=== PATIENT | female | born 1990 | race Caucasian/White ===

== ENCOUNTER 2016-07-12 17:57 | Emergency (ER) | payer SELFPAY ==
[2016-07-12 17:58] VITALS: BMI 27.4
[2016-07-12 18:16] VITALS: RESP 16; O2SAT 100
[2016-07-12] MEDS ORDERED: Sodium Chloride 0.9% 1,000 ML IV STA (19:39)
[2016-07-12] MEDS ORDERED: Dextrose 5%/Lactated Ringer's 1,000 ML IV SCH (19:45)
[2016-07-12 19:52] LABS: BASO # 0.1 K/uL (0.0-0.2); BASO % 0.4 % (0.0-2.0); EOS % 0.1 % (0.0-4.0); HEMATOCRIT 41.5 % (34.0-47.0); LYMPH # 2.5 K/uL (1.0-4.3); LYMPH % 13.4 % (20.0-40.0); MEAN CELL VOLUME 83.6 fl (81.0-99.0); MEAN CORPUSCULAR HEMOGLOBIN 27.5 pg (27.0-31.0); MEAN CORPUSCULAR HGB CONC 32.9 g/dL (33.0-37.0); MEAN PLATELET VOLUME 8.1 fl (7.2-11.7); MONO # 0.8 K/uL (0.0-0.8); MONO % 4.2 % (0.0-10.0); NEUT # 15.5 K/uL (1.8-7.0); NEUT % 81.9 % (50.0-75.0); NRBC % 0.1 % (0.0-0.0); RED CELL DISTRIBUTION WIDTH 13.9 % (11.5-14.5)
[2016-07-12 20:07] LABS: ALB/GLOB RATIO 1.3 (1.0-2.1); ALKALINE PHOSPHATASE 66 U/L (38-126); ALT/SGPT 44 U/L (9-52); AST/SGOT 30 U/L (14-36); BILIRUBIN,TOTAL 0.6 mg/dl (0.2-1.3); BLOOD UREA NITROGEN 12 mg/dl (7-17); CALCIUM 10.1 mg/dL (8.4-10.2); CARBON DIOXIDE 24 mmol/L (22-30); CHLORIDE 107 mmol/L (98-107); GFR AFRICAN-AMERICAN > 60; GLUCOSE,RANDOM 110 mg/dL (65-105); LIPASE 33 U/L (23-300); MAGNESIUM 2.1 MG/DL (1.6-2.3); PHOSPHOROUS 5.1 mg/dl (2.5-4.5); SODIUM 145 mmol/l (132-148); TOTAL PROTEIN 8.4 G/DL (6.3-8.2)
[2016-07-12 20:09] LABS: PARTIAL THROMBOPLASTIN TIME 26.6 SECONDS (23.3-32.5)
--- NOTE | 2016-07-12 20:25 | ED PDOC ---
HPI: Abdomen Time Seen by Provider: 07/12/16 18:59 Chief Complaint (Nursing): Abdominal Pain Chief Complaint (Provider): Abdominal Pain/Vomiting/Diarrhea History Per: Patient History/Exam Limitations: no limitations Onset/Duration Of Symptoms: Days (x1) Current Symptoms Are (Timing): Still Present Associated Symptoms: Vomiting, Diarrhea Additional Complaint(s): 18:59 Tammy De Anda is a 25 year old female that presents to the ED with a chief complaint of cramping abdominal pain, vomiting, and diarrhea that she has been experiencing since yesterday. Patient reports that she has two episodes of nonbilious, nonbloody vomiting and about 10 episodes of yellow, watery diarrhea. She also reports that her cramping has become more severe today. Patient states that she has no appetite, and that she is unable to tolerate anything PO. She has associated chills, but denies any fever or urinary symptoms. She is currently experiencing vaginal bleeding consistent with her menstrual cycle. Of Note: Patient denies any sick contacts, recent travel, or new foods. Past Medical History Reviewed: Historical Data, Nursing Documentation, Vital Signs Vital Signs: Last Vital Signs Temp 98.1 F 07/12/16 23:39 Pulse 75 07/12/16 23:39 Resp 16 07/12/16 23:39 BP 115/74 07/12/16 23:39 Pulse Ox 100 07/12/16 23:39 - Medical History PMH: No Chronic Diseases - Family History Family History: States: Unknown Family Hx - Social History Current smoker - smoking cessation education provided: Yes Alcohol: Social Drugs: Denies - Immunization History Hx Tetanus Toxoid Vaccination: No Hx Influenza Vaccination: No Hx Pneumococcal Vaccination: No - Home Medications Home Medications: Ambulatory Orders Medication Instructions Recorded Ciprofloxacin HCl [Cipro] 500 mg PO BID #20 tab 07/12/16 Dicyclomine [Bentyl] 20 mg PO BID PRN #30 tab 07/12/16 Ondansetron ODT [Zofran ODT] 1 odt PO Q6 PRN #30 odt 07/12/16 Saccharomyces Boulardi [Florastor] 500 mg PO BID #28 cap 07/12/16 metroNIDAZOLE [Flagyl] 500 mg PO TID #30 tab 07/12/16 - Allergies Allergies/Adverse Reactions: Allergies Allergy/AdvReac Type Severity Reaction Status Date / Time No Known Allergies Allergy Verified 07/12/16 18:14 Review of Systems Constitutional: Positive for: Chills. Negative for: Fever, Other (no appetite, unable to tolerate anything PO) Gastrointestinal: Positive for: Vomiting (x2 episodes nonbilious, nonbloody vomiting), Abdominal Pain (cramping), Diarrhea (x10 episodes yellow, watery diarrhea) Genitourinary Female: Positive for: Vaginal Bleeding (consistent with menstrual cycle). Negative for: Dysuria, Frequency, Incontinence, Hematuria Physical Exam - Reviewed Nursing Documentation Reviewed: Yes Vital Signs Reviewed: Yes - Physical Exam Appears: Positive for: Non-toxic, In Acute Distress (in mild painful distress) Head Exam: Positive for: ATRAUMATIC, NORMOCEPHALIC Skin: Positive for: Normal Color, Warm, Dry ENT: Positive for: Pharynx Is (clear), Other (tacky mucous membranes) Cardiovascular/Chest: Positive for: Regular Rate, Rhythm. Negative for: Murmur Respiratory: Positive for: Normal Breath Sounds. Negative for: Wheezing Gastrointestinal/Abdominal: Positive for: Bowel Sounds (hyperactive), Soft, Tenderness (diffuse mild TTP). Negative for: Mass, Distended, Guarding, Rebound Neurologic/Psych: Positive for: Alert, Oriented - Laboratory Results Result Diagrams: 07/12/16 19:44 07/12/16 19:44 - ECG O2 Sat by Pulse Oximetry: 100 (RA) Pulse Ox Interpretation: Normal Medical Decision Making Medical Decision Makin:16 Initial Impression: Abdominal Pain, Vomiting, Diarrhea Initial Plan: * Urine dip * Urine * Dextrose 5%/Lactated Ringers 1000 mL at 100 mL/hr * Pepcid 20 mg iV * Morphine 2 mg IV * Sodium Chloride 1000 mL at 1000 mls/hr * Zofran 8 mg IV * Reevaluation 19:58 Labs showed leukocytosis, ordered CT A/P with IV contrast. EXAM: CT Abdomen and Pelvis With Intravenous Contrast CLINICAL HISTORY: 25 years old, female; Pain; Abdominal pain; Generalized; Additional info: Abd pain. Sent phy doc. With request TECHNIQUE: Axial computed tomography images of the abdomen and pelvis with intravenous contrast. This CT exam was performed using one or more of the following dose reduction techniques : automated exposure control, adjustment of the mA and/or kV according to patient size, and/ or use of iterative reconstruction technique. Coronal and sagittal reformatted images were created and reviewed. CONTRAST: 90 mL of [id number] administered intravenously. EXAM DATE/TIME: Exam ordered 07/12/2016 7:58 PM COMPARISON: CT ABD 09/03/2013 8:06:55 AM FINDINGS: Lower thorax: No acute findings. ABDOMEN: Liver: Unremarkable. No mass. Gallbladder and bile ducts: Unremarkable. No calcified stones. No ductal dilation. Pancreas: Unremarkable. No mass. No ductal dilation. Spleen: Unremarkable. No splenomegaly. Adrenals: Unremarkable. No mass. Kidneys and ureters: Unremarkable. No solid mass. No hydronephrosis. Stomach and bowel: There are borderline distended segments of small bowel in the pelvis with airfluid levels which appear to precede segments of small bowel which demonstrate wall thickening and slight surrounding induration and suggest ileitis or distal enteritis primarily in the right pelvis. Much of the distal colon is collapsed. Minimal wall thickening is not excluded. Appendix: A normal appendix is seen. PELVIS: Bladder: Unremarkable. No mass. Reproductive: Unremarkable as visualized. ABDOMEN and PELVIS: Intraperitoneal space: Unremarkable. No free air. No significant fluid collection. Bones/joints: No acute fracture. No dislocation. Soft tissues: Unremarkable. Vasculature: Unremarkable. No abdominal aortic aneurysm. Lymph nodes: Unremarkable. No enlarged lymph nodes. IMPRESSION: 1. Evidence of distal enteritis or ileitis with borderline distention of the preceding or afferent small bowel segments which may reflect partial obstruction or adynamic segment. Findings are increased since 09/03/2013. 2. The distal colon is collapsed. Slight wall thickening or nonspecific distal colitis is not excluded. Thank you for allowing us to participate in the care of your patient. Dictated and Authenticated by: Mike Burton MD 07/12/2016 9:59 PM Eastern Time ([place] & [place]) Pt reports feeling better. No vomiting in ER. Abdomen soft. Reviewed findings and plan of care. Pt will be dc'd and strongly advised to f/u with clinic for referral to GI and further management. Scribe Attestation: Documented by Ela Sesay, acting as a scribe for Eleonora Mota MD.. Provider Scribe Attestation: All medical record entries made by the Scribe were at my direction and personally dictated by me. I have reviewed the chart and agree that the record accurately reflects my personal performance of the history, physical exam, medical decision making, and the department course for this patient. I have also personally directed, reviewed, and agree with the discharge instructions and disposition. Disposition - Clinical Impression Clinical Impression: Abdominal pain, Enteritis - Disposition Referrals: [facility] [Outside] [facility] [Outside] (CALL TOMORROW TO SETUP APPOINTMENT IN 1-2 DAYS FOR REEVALUATION. YOU WILL NEED A REFERRAL FROM THE CLINIC TO VISIT GI SPECIALIST.) Disposition: Routine/Home Disposition Time: 23:00 Condition: IMPROVED Prescriptions: Ciprofloxacin HCl [Cipro] 500 mg PO BID #20 tab Dicyclomine [Bentyl] 20 mg PO BID PRN #30 tab PRN Reason: abdominal pain metroNIDAZOLE [Flagyl] 500 mg PO TID #30 tab Ondansetron ODT [Zofran ODT] 1 odt PO Q6 PRN #30 odt PRN Reason: Nausea/Vomiting Saccharomyces Boulardi [Florastor] 500 mg PO BID #28 cap Instructions: Abdominal Pain (ED), Nutrition Tips for Relief of Diarrhea (ED), Enteritis (ED) Forms: [facility] ED School/Work Excuse
[2016-07-12] MEDS ORDERED: Iohexol 300 100 ML IJ ONE (21:07)
[2016-07-12] MEDS ORDERED: Sodium Chloride 0.9% 50 ML IV ONE (21:07)
[2016-07-12 23:39] VITALS: BP 115/74; PULSE 75; TEMP 98.1
--- NOTE | 2016-07-13 11:37 | CT ---
PROCEDURE: CT Abdomen and Pelvis with contrast HISTORY: abd pain COMPARISON: Comparison is made to the previous study dated 09/03/2013 TECHNIQUE: Axial and reformatted coronal and sagittal CT images of the abdomen and pelvis were obtained after IV contrast administration. Contrast dose: 90 mL of Omnipaque 300 Radiation dose: Total exam DLP = 538.26 mGy-cm. This CT exam was performed using one or more of the following dose reduction techniques: Automated exposure control, adjustment of the mA and/or kV according to patient size, and/or use of iterative reconstruction technique. FINDINGS: LOWER THORAX: Unremarkable. LIVER: Unremarkable. No gross lesion or ductal dilatation. GALLBLADDER AND BILE DUCTS: Unremarkable. PANCREAS: Unremarkable. No gross lesion or ductal dilatation. SPLEEN: Unremarkable. ADRENALS: Unremarkable. No mass. KIDNEYS AND URETERS: Unremarkable. No hydronephrosis. No solid mass. VASCULATURE: Unremarkable. No aortic aneurysm. BOWEL: Mildly dilated small bowel loops demonstrate mild 2 moderate wall thickening seen at the lower abdomen and upper pelvis suspicious for enteritis. No evidence of bowel obstruction. Wall thickening versus incomplete distention of the distal colon is also noted. APPENDIX: No evidence of appendicitis. PERITONEUM: Unremarkable. No free fluid. No free air. LYMPH NODES: Unremarkable. No enlarged lymph nodes. BLADDER: Unremarkable. REPRODUCTIVE: Heterogeneous mildly enlarged uterus. The uterine cervix is enlarged. BONES: No acute fracture. OTHER FINDINGS: None. IMPRESSION: Mildly dilated small bowel loops demonstrate [id number] wall thickening suspicious for distal enteritis. Wall thickening versus incomplete distention of the distal large bowel. The possibility of mild colitis is not excluded. The differential diagnosis includes infection or inflammatory process. Heterogeneous mildly enlarged uterus. If clinically warranted further assessment by ultrasound may be obtained. Preliminary report was submitted by virtual Radiology.
== END 2016-07-12 23:48 | disposition home or self-care (01) ==
LOC: H.ER 17:57
DX: K52.9 Noninfective gastroenteritis and colitis, unspecified (principal); R10.9 Unspecified abdominal pain; R19.7 Diarrhea, unspecified; R11.2 Nausea with vomiting, unspecified; D72.829 Elevated white blood cell count, unspecified; F17.200 Nicotine dependence, unspecified, uncomplicated
CPT/HCPCS: 74177; 80053; 81025; 83605; 83690; 83735; 84100; 85025; 85610; 85730; 96361; 96374; 96375; 99283; J1885; J2270; J2405; J7040; J7120; Q9967

== ENCOUNTER 2017-04-15 11:29 | Emergency (ER) | payer MEDICAID ==
[2017-04-15 11:29] VITALS: BMI 27.4
[2017-04-15 13:03] VITALS: BP 124/81; PULSE 100; RESP 18; TEMP 97.9; O2SAT 99
--- NOTE | 2017-04-15 13:57 | ED PDOC ---
HPI: Dental Pain/Injury Time Seen by Provider: 04/15/17 13:17 Chief Complaint (Nursing): Dental Pain Chief Complaint (Provider): Dental pain History Per: Patient History/Exam Limitations: no limitations Onset/Duration Of Symptoms: Days (2 ) Additional Complaint(s): Pt. with dental pain lower back mouth for 2 days. No numbness, tingles, weakness, headaches, dizziness. No sore throat, runny nose, nasal congestion. No neck pain or headaches. Tolerates po. No fever. Did not take anything for her pain. Feels swelling in gums in that area. Past Medical History Reviewed: Nursing Documentation, Vital Signs Vital Signs: Last Vital Signs Temp 97.9 F 04/15/17 13:01 Pulse 100 H 04/15/17 13:01 Resp 18 04/15/17 13:01 BP 124/81 04/15/17 13:01 Pulse Ox 99 04/15/17 13:01 - Medical History PMH: No Chronic Diseases - Surgical History Surgical History: No Surg Hx - Family History Family History: States: Unknown Family Hx - Living Arrangements Living Arrangements: With Family - Social History Current smoker - smoking cessation education provided: No Alcohol: None Drugs: Denies - Immunization History Hx Tetanus Toxoid Vaccination: No Hx Influenza Vaccination: No Hx Pneumococcal Vaccination: No - Home Medications Home Medications: Ambulatory Orders Medication Instructions Recorded Ciprofloxacin HCl [Cipro] 500 mg PO BID #20 tab 07/12/16 Dicyclomine [Bentyl] 20 mg PO BID PRN #30 tab 07/12/16 Ondansetron ODT [Zofran ODT] 1 odt PO Q6 PRN #30 odt 07/12/16 Saccharomyces Boulardi [Florastor] 500 mg PO BID #28 cap 07/12/16 metroNIDAZOLE [Flagyl] 500 mg PO TID #30 tab 07/12/16 Ibuprofen [Motrin] 600 mg PO TID 7 Days tab 04/15/17 Penicillin VK [Penicillin VK Tab] 500 mg PO Q6H 7 Days tab 04/15/17 - Allergies Allergies/Adverse Reactions: Allergies Allergy/AdvReac Type Severity Reaction Status Date / Time No Known Allergies Allergy Verified 04/15/17 13:01 Review of Systems Constitutional: Negative for: Fever, Weakness ENT: Positive for: Mouth Pain. Negative for: Nose Pain, Nose Congestion Cardiovascular: Negative for: Chest Pain Respiratory: Negative for: Cough, Shortness of Breath Gastrointestinal: Negative for: Nausea, Vomiting Neurological: Negative for: Weakness, Numbness, Confusion Physical Exam - Reviewed Nursing Documentation Reviewed: Yes Vital Signs Reviewed: Yes - Physical Exam Appears: Positive for: Non-toxic, No Acute Distress Head Exam: Positive for: ATRAUMATIC, NORMAL INSPECTION, NORMOCEPHALIC ENT: Positive for: Other (b/l gum behind molars lower with mild tenderness; no erythema, fluctuance. No swelling noted. Molars nontender. No dc.). Negative for: Nasal Congestion, Pharyngeal Erythema, Tonsillar Exudate Neck: Positive for: Normal, Painless ROM, Supple Cardiovascular/Chest: Positive for: Regular Rate, Rhythm Respiratory: Positive for: Normal Breath Sounds Gastrointestinal/Abdominal: Positive for: Soft. Negative for: Tenderness Back: Positive for: Normal Inspection. Negative for: L CVA Tenderness, R CVA Tenderness Extremity: Positive for: Normal ROM. Negative for: Tenderness, Pedal Edema Neurologic/Psych: Positive for: Alert, water quality analyst II-XII, Oriented - ECG O2 Sat by Pulse Oximetry: 99 Pulse Ox Interpretation: Normal - Progress ED Course And Treament: 1403: Pt. with gum/dental pain. Advised to fu with dentist/pcp. Pt. demanding stronger meds then motrin. Upset and yelling at staff. 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 Disposition - Clinical Impression Clinical Impression: Pain, dental - Patient ED Disposition Is Patient to be Admitted: No Counseled Patient/Family Regarding: Diagnosis, Need For Followup, Rx Given - Disposition Referrals: [facility] [Outside] - 04/18/17 Disposition: Routine/Home Disposition Time: 13:56 Condition: STABLE Additional Instructions: Return if not better in 3 days. See the clinic and dentist for further evaluation in 3 days. Prescriptions: Ibuprofen [Motrin] 600 mg PO TID 7 Days tab Penicillin VK [Penicillin VK Tab] 500 mg PO Q6H 7 Days tab Instructions: Toothache (ED) Forms: [facility] ED School/Work Excuse
== END 2017-04-15 14:27 | disposition home or self-care (01) ==
LOC: H.ER 11:29
DX: K08.89 Other specified disorders of teeth and supporting structures (principal)
CPT/HCPCS: 96372; 99282; J1885

== ENCOUNTER 2017-06-12 14:00 | Emergency (ER) | payer MEDICAID, OTHER ==
[2017-06-12 14:11] VITALS: BMI 21.9
[2017-06-12 14:13] VITALS: BP 113/64; RESP 18; TEMP 99.3; O2SAT 100
[2017-06-12] MEDS ORDERED: Sodium Chloride 0.9% 1,000 ML IV STA (14:21)
--- NOTE | 2017-06-12 14:51 | ED PDOC ---
HPI: General Adult Time Seen by Provider: 06/12/17 14:20 Chief Complaint (Nursing): Abdominal Pain Chief Complaint (Provider): Abdominal Pain History Per: Patient History/Exam Limitations: no limitations Onset/Duration Of Symptoms: Days (x7) Have you had recent travel within the past 21 days to any of the following countries: [place], [place], [place] or [place]?: No Current Symptoms Are (Timing): Still Present Additional Complaint(s): 26 y/o female with a history of opioid addiction presents to the ED for in patient detox addiction. She states she was ingesting 160 mg per day of oxycodon and oxycontin. Patient is not on a current replacement therapy or sub lingual. She complains of abdominal cramping, nausea, body pain, fatigue, and headache. Patient denies any fever, focal abdominal pain, syncope, and has no psychiatric complaints. She has been attending therapy daily and has good out patient follow up. ASSISTANT AUDITOR: None given Past Medical History Reviewed: Historical Data, Nursing Documentation, Vital Signs Vital Signs: Last Vital Signs Temp 99.3 F 06/12/17 14:10 Pulse 84 06/12/17 15:04 Resp 18 06/12/17 14:10 BP 113/64 06/12/17 15:04 Pulse Ox 100 06/12/17 15:24 - Medical History Other PMH: opioid addiction - Surgical History Other surgeries: Termination of - Family History Family History: States: Unknown Family Hx - Social History Current smoker - smoking cessation education provided: Yes Alcohol: None Drugs: Opiates - Immunization History Hx Tetanus Toxoid Vaccination: No Hx Influenza Vaccination: No Hx Pneumococcal Vaccination: No - Home Medications Home Medications: Ambulatory Orders Medication Instructions Recorded Ciprofloxacin HCl [Cipro] 500 mg PO BID #20 tab 07/12/16 Dicyclomine [Bentyl] 20 mg PO BID PRN #30 tab 07/12/16 Ondansetron ODT [Zofran ODT] 1 odt PO Q6 PRN #30 odt 07/12/16 Saccharomyces Boulardi [Florastor] 500 mg PO BID #28 cap 07/12/16 metroNIDAZOLE [Flagyl] 500 mg PO TID #30 tab 07/12/16 Ibuprofen [Motrin] 600 mg PO TID 7 Days tab 04/15/17 Penicillin VK [Penicillin VK Tab] 500 mg PO Q6H 7 Days tab 04/15/17 Ondansetron [Zofran] 4 mg PO Q8H #10 tab 06/12/17 cloNIDine [Catapres] 0.1 mg PO Q8 #10 tab 06/12/17 - Allergies Allergies/Adverse Reactions: Allergies Allergy/AdvReac Type Severity Reaction Status Date / Time No Known Allergies Allergy Verified 04/15/17 13:01 Review of Systems ROS Statement: Except As Marked, All Systems Reviewed And Found Negative Constitutional: Positive for: Other (body pain and fatigue). Negative for: Fever Gastrointestinal: Positive for: Nausea, Abdominal Pain (cramping), Diarrhea. Negative for: Other (focal abdominal pain) Neurological: Positive for: Headache. Negative for: Other (syncope) Psych: Negative for: Other (psychiatric complaints) Physical Exam - Reviewed Nursing Documentation Reviewed: Yes Vital Signs Reviewed: Yes - Physical Exam Appears: Positive for: Non-toxic, No Acute Distress Head Exam: Positive for: ATRAUMATIC, NORMOCEPHALIC Skin: Positive for: Normal Color, Warm, Dry Eye Exam: Positive for: EOMI, Normal appearance, PERRL Neck: Positive for: Normal, Painless ROM Cardiovascular/Chest: Positive for: Regular Rate, Rhythm. Negative for: Murmur Respiratory: Positive for: Normal Breath Sounds. Negative for: Respiratory Distress Gastrointestinal/Abdominal: Positive for: Bowel Sounds (increased), Tenderness ( mild defused tenderness) Back: Positive for: Normal Inspection. Negative for: L CVA Tenderness, R CVA Tenderness Extremity: Positive for: Normal ROM. Negative for: Pedal Edema, Deformity Neurologic/Psych: Positive for: Alert, Oriented (x3). Negative for: Motor/ Sensory Deficits - Laboratory Results Result Diagrams: 06/12/17 14:40 06/12/17 14:40 - ECG O2 Sat by Pulse Oximetry: 100 (RA) Pulse Ox Interpretation: Normal Medical Decision Making Medical Decision Making: Time: 14:10 Initial Impression: In patient detox Initial Plan: * Catapres 0.1mg PO * Bentyl 10mg PO * IV Fluids * Zofran 4mg PO * Urinalysis * Avoid opioid replacement * Supportive care * Endorse to Dr. Seymour at 3:00 PM Scribe Attestation: Documented by Chaparro Boland acting as a scribe for DO. MD Gregorio Fernandez Attestation: All medical record entries made by the Scribe were at my direction and personally dictated by me. I have reviewed the chart and agree that the record accurately reflects my personal performance of the history, physical exam, medical decision making, and the department course for this patient. I have also personally directed, reviewed, and agree with the discharge instructions and disposition. Disposition - Clinical Impression Clinical Impression: Opioid withdrawal - Patient ED Disposition Is Patient to be Admitted: Transfer of Care - Disposition Referrals: Provider JARON, [Primary Care Provider] - Disposition: Transfer of Care Disposition Time: 15:00 Condition: FAIR Prescriptions: cloNIDine [Catapres] 0.1 mg PO Q8 #10 tab Ondansetron [Zofran] 4 mg PO Q8H #10 tab Instructions: Drug Abuse and Drug Addiction (DC) Forms: [facility] (Guamanian) Patient Signed Over To: Coy Seymour
[2017-06-12 14:52] LABS: BASO # 0.1 K/uL (0.0-0.2); BASO % 0.4 % (0.0-2.0); EOS % 0.2 % (0.0-4.0); HEMOGLOBIN 13.4 g/dL (12.0-16.0); LYMPH # 3.4 K/uL (1.0-4.3); LYMPH % 23.6 % (20.0-40.0); MEAN CELL VOLUME 86.5 fl (81.0-99.0); MEAN CORPUSCULAR HEMOGLOBIN 28.7 pg (27.0-31.0); MEAN CORPUSCULAR HGB CONC 33.2 g/dL (33.0-37.0); MEAN PLATELET VOLUME 7.6 fl (7.2-11.7); MONO % 6.8 % (0.0-10.0); NEUT # 10.1 K/uL (1.8-7.0); NRBC % 0.1 % (0.0-0.0); RBC 4.66 Mil/uL (3.80-5.20); RED CELL DISTRIBUTION WIDTH 12.9 % (11.5-14.5); WHITE BLOOD COUNT 14.6 K/uL (4.8-10.8)
[2017-06-12 14:58] LABS: ALB/GLOB RATIO 1.3 (1.0-2.1); ALBUMIN 4.3 g/dL (3.5-5.0); ALT/SGPT 38 U/L (9-52); AST/SGOT 33 U/L (14-36); BLOOD UREA NITROGEN 16 mg/dl (7-17); CALCIUM 9.5 mg/dL (8.4-10.2); GFR AFRICAN-AMERICAN > 60; GFR NON-AFRICAN AMERICAN > 60; LIPASE 142 U/L (23-300)
[2017-06-12 15:05] VITALS: PULSE 84
--- NOTE | 2017-06-12 15:22 | ED PDOC ---
- Laboratory Results Result Diagrams: 06/12/17 14:40 06/12/17 14:40 - ECG O2 Sat by Pulse Oximetry: 100 (RA) - Progress Re-evaluation Time: 15:20 Condition: Improved Disposition - Clinical Impression Clinical Impression: Opioid withdrawal - POA Present On Arrival: None - Disposition Referrals: Provider TBD, [Primary Care Provider] - Disposition: Routine/Home Disposition Time: 15:21 Condition: FAIR Prescriptions: cloNIDine [Catapres] 0.1 mg PO Q8 #10 tab Ondansetron [Zofran] 4 mg PO Q8H #10 tab Instructions: Drug Abuse and Drug Addiction (DC) Forms: [facility] (Nepalese)
[2017-06-12 16:51] LABS: SQUAMOUS EPITHIAL 4 /hpf (0-5); URINE BACTERIA RARE (<OCC); URINE BILIRUBIN NEGATIVE (NEGATIVE); URINE BLOOD NEGATIVE (NEGATIVE); URINE CLARITY SLIGHTY-CLOUDY (Clear); URINE COLOR YELLOW (YELLOW); URINE GLUCOSE (UA) NEG (Normal); URINE LEUKOCYTE ESTERASE NEG Leu/uL (Negative); URINE PROTEIN 100 mg/dL (NEGATIVE); URINE UROBILINOGEN 0.2-1.0 mg/dL (0.2-1.0)
== END 2017-06-12 15:44 | disposition home or self-care (01) ==
LOC: SUPCPDRO 14:00 → H.ER 14:00
DX: F11.23 Opioid dependence with withdrawal (principal); F17.200 Nicotine dependence, unspecified, uncomplicated
CPT/HCPCS: 80053; 81003; 81025; 83690; 85025; 99285; J7040

== ENCOUNTER 2017-08-03 08:44 | Emergency (ER) | payer OTHER ==
[2017-08-03 08:44] VITALS: BMI 21.9
[2017-08-03 08:51] VITALS: RESP 18; TEMP 98.3; O2SAT 100
[2017-08-03 08:58] VITALS: BP 104/63; PULSE 88
--- NOTE | 2017-08-03 09:32 | ED PDOC ---
HPI: Eye Injury/Pain Time Seen by Provider: 08/03/17 08:59 Chief Complaint (Nursing): Eye Problem History Per: Patient Onset/Duration Of Symptoms: Days (2) Current Symptoms Are (Timing): Still Present Severity: Mild Pain Scale Rating Of: 0 Quality: Burning Associated Symptoms: Itching, Discharge From Eye Additional Complaint(s): Left eye irritation and yellow discharge this AM . No pain or change in vision. Past Medical History Vital Signs: Last Vital Signs Temp 98.3 F 08/03/17 08:50 Pulse 88 08/03/17 08:54 Resp 18 08/03/17 08:54 BP 104/63 08/03/17 08:54 Pulse Ox 100 08/03/17 08:50 - Medical History PMH: No Chronic Diseases - Family History Family History: States: Unknown Family Hx - Immunization History Hx Tetanus Toxoid Vaccination: No Hx Influenza Vaccination: No Hx Pneumococcal Vaccination: No - Home Medications Home Medications: Ambulatory Orders Medication Instructions Recorded Ciprofloxacin HCl [Cipro] 500 mg PO BID #20 tab 07/12/16 Dicyclomine [Bentyl] 20 mg PO BID PRN #30 tab 07/12/16 Ondansetron ODT [Zofran ODT] 1 odt PO Q6 PRN #30 odt 07/12/16 Saccharomyces Boulardi [Florastor] 500 mg PO BID #28 cap 07/12/16 metroNIDAZOLE [Flagyl] 500 mg PO TID #30 tab 07/12/16 Ibuprofen [Motrin] 600 mg PO TID 7 Days tab 04/15/17 Penicillin VK [Penicillin VK Tab] 500 mg PO Q6H 7 Days tab 04/15/17 Ibuprofen [Motrin Tab] 800 mg PO Q8 #20 tab 06/12/17 Ondansetron [Zofran] 4 mg PO Q8H #10 tab 06/12/17 cloNIDine [Catapres] 0.1 mg PO Q8 #10 tab 06/12/17 Tobramycin 0.3% [Tobramycin 5 Ml] 1 drop OP TID #1 bottle 08/03/17 - Allergies Allergies/Adverse Reactions: Allergies Allergy/AdvReac Type Severity Reaction Status Date / Time No Known Allergies Allergy Verified 04/15/17 13:01 Review of Systems Constitutional: Negative for: Fever Eyes: Positive for: Redness. Negative for: Vision Change Physical Exam - Physical Exam Appears: Positive for: Non-toxic, No Acute Distress Skin: Positive for: Normal Color, Warm, DRY Eye Exam: Positive for: EOMI, PERRL, Conjunctival injection - ECG O2 Sat by Pulse Oximetry: 100 Disposition - Clinical Impression Clinical Impression: Conjunctivitis - Patient ED Disposition Is Patient to be Admitted: No Counseled Patient/Family Regarding: Diagnosis, Need For Followup, Rx Given - Disposition Referrals: [facility] [Outside] Disposition: Routine/Home Disposition Time: 09:31 Condition: FAIR Prescriptions: Tobramycin 0.3% [Tobramycin 5 Ml] 1 drop OP TID #1 bottle Instructions: Conjunctivitis ([place])
== END 2017-08-03 09:38 | disposition home or self-care (01) ==
LOC: H.ER 08:44
DX: H10.9 Unspecified conjunctivitis (principal)

== ENCOUNTER 2018-01-17 11:23 | Emergency (ER) | payer OTHER ==
[2018-01-17 11:24] VITALS: BMI 21.9
[2018-01-17 11:28] VITALS: RESP 17; TEMP 98.5; O2SAT 99
[2018-01-17] MEDS ORDERED: Sodium Chloride 0.9% 1,000 ML IV STA (11:58)
--- NOTE | 2018-01-17 12:21 | ED PDOC ---
HPI: Abdomen Time Seen by Provider: 01/17/18 11:41 Chief Complaint (Nursing): Abdominal Pain Chief Complaint (Provider): Abdominal Pain History Per: Patient History/Exam Limitations: no limitations Additional Complaint(s): 27 year old female arrives to ED from [facility] for evaluation of a possible demise after cardiac activity was not seen on follow-up U/S at facility [employer]. Patient states she is approximately 12 weeks by LMP, A2. She reports mild abdominal cramping yesterday which has since resolved, but otherwise: (-) fever/chills, (-) nausea, (-) vomiting, (-) diarrhea, or (-) vaginal bleeding. Prior U/S at 8 weeks gestation demonstrated HR as per patient. LMP: 10/21/17. No medications taken [employer]ATE WORK[employer]. 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 Past Medical History Reviewed: Historical Data, Nursing Documentation, Vital Signs Vital Signs: Last Vital Signs Temp 98.5 F 01/17/18 11:27 Pulse 90 01/17/18 11:27 Resp 17 01/17/18 11:27 BP 112/73 01/17/18 11:27 Pulse Ox 99 01/17/18 11:27 - Medical History PMH: No Chronic Diseases - Surgical History Other surgeries: D&C x2 - Family History Family History: States: Unknown Family Hx - Home Medications Home Medications: Ambulatory Orders Medication Instructions Recorded Ciprofloxacin HCl [Cipro] 500 mg PO BID #20 tab 07/12/16 Dicyclomine [Bentyl] 20 mg PO BID PRN #30 tab 07/12/16 Ondansetron ODT [Zofran ODT] 1 odt PO Q6 PRN #30 odt 07/12/16 Saccharomyces Boulardi [Florastor] 500 mg PO BID #28 cap 07/12/16 metroNIDAZOLE [Flagyl] 500 mg PO TID #30 tab 07/12/16 Ibuprofen [Motrin] 600 mg PO TID 7 Days tab 04/15/17 RX: Penicillin VK [Penicillin VK 500 mg PO Q6H 7 Days tab 04/15/17 Tab] Ibuprofen [Motrin Tab] 800 mg PO Q8 #20 tab 06/12/17 Ondansetron [Zofran] 4 mg PO Q8H #10 tab 06/12/17 RX: cloNIDine [Catapres] 0.1 mg PO Q8 #10 tab 06/12/17 Tobramycin 0.3% [Tobramycin 5 Ml] 1 drop OP TID #1 bottle 08/03/17 - Allergies Allergies/Adverse Reactions: Allergies Allergy/AdvReac Type Severity Reaction Status Date / Time No Known Allergies Allergy Verified 12/01/17 19:58 Review of Systems ROS Statement: Except As Marked, All Systems Reviewed And Found Negative Gastrointestinal: Positive for: Abdominal Pain (mild cramping- resolved spontaneously last night). Negative for: Nausea, Vomiting, Diarrhea Genitourinary Female: Negative for: Vaginal Bleeding Physical Exam - Reviewed Nursing Documentation Reviewed: Yes Vital Signs Reviewed: Yes - Physical Exam Comments: GENERAL APPEARANCE: Patient is awake, alert, oriented x 3, in no distress. Resting comfortably, interacting with family at bedside. SKIN: Warm, dry; (-) cyanosis. EYES: (-) conjunctival pallor, (-) scleral icterus. ENMT: Mucous membranes are moist. NECK: Supple, FROM (-) tenderness, (-) stiffness, (-) lymphadenopathy. CHEST AND RESPIRATORY: (-) rales, (-) rhonchi, (-) wheezes; breath sounds equal bilaterally. Respirations even and nonlabored, speaking in full sentences. HEART AND CARDIOVASCULAR: (-) irregularity ABDOMEN AND GI: Soft (-) distention. Bowel sounds active x4; (-) tenderness. (- ) guarding, (-) rebound, (-) palpable masses, (-) CVA tenderness. EXTREMITIES: (-) deformity, (-) edema, (+) distal pulses. NEURO AND PSYCH: Mental status as above; (-) focal findings. Gait: steady. Speech: clear. (-) facial asymmetry (-) aphasia - Laboratory Results Result Diagrams: 01/17/18 12:30 01/17/18 12:30 Urine POC: Positive Urine dip results: Negative for: Leukocyte Esterase, Blood, Nitrate, Ketones, Glucose, Bilirubin, Protein - ECG O2 Sat by Pulse Oximetry: 99 (RA) Pulse Ox Interpretation: Normal Medical Decision Making Medical Decision Making: Initial Impression: Possible demise Initial Plan: * Labs * IV fluids * Tylenol 975mg PO * US OB transvag 1220 Udip reviewed and unremarkable Urine preg: (+) 1320 CBC and CMP grossly unremarkable. Beta HCG 38,335 Pending U/S evaluation. 1345 U/S reviewed, radiology report follows Date of service: 01/17/2018 PROCEDURE: OB Pelvic Ultrasound HISTORY: no HR on U/S earlier today at imaging center COMPARISON: 12/01/2017. FINDINGS: UTERUS: Single intrauterine gestation. CRL equivalent measures 1.62 cm equivalent to 8 weeks and 0 day of gestational age. Gestational sac diameter measures 5.35 cm equivalent to 11 weeks and 2 days of gestational age age (Ultrasound estimated): 9 weeks and 5 days cardiac activity is not documented. Meme-gestational hemorrhage: None. Measures 11.5 x 9.2 x 7.1 cm. Normal in size and appearance. No fibroid or other mass lesion seen. CERVIX: Long and closed. In nabothian cyst is identified. RIGHT OVARY: Measures 3.5 x 3.5 x 2.0 cm. No mass. Normal flow. There is a 1.8 x 1.3 x 1.4 cm complicated cyst. LEFT OVARY: Measures 2.2 x 3.1 x 2.0 cm. No mass. Normal flow. FREE FLUID: None. OTHER FINDINGS: None. IMPRESSION: Single intrauterine gestation with mean gestational age of 9 weeks and 5 days. cardiac activity is not documented concerning for demise. Important findings were discussed with MARNI Clounga in the ER on 01/17/2018 at 1:45 p.m. Consult placed to OBGYN prescriptionist. [address] Duke, OBGYN prescriptionist, who states patient can follow up with her OBGYN for further treatment. Recommends no further action required in ED at this time as patient in stable condition. 1435 On re-evaluation, patient offers no complaints. On exam, patient remains AAOx3, in no acute distress. Lungs clear to auscultation, cardiac RRR, abdomen soft, nontender, repeat neuro exam shows no focal findings. Vitals stable. Lab/diagnostic results d/w the patient in great detail. Diagnosis of demise d/w the patient. Based on history, exam and diagnostic results, plan will be for outpatient follow up with OBGYN within 48 hours. Patient instructed to follow up with PMD/clinic/ referred provider in 1-2 days without fail. Return to the ED at any time for any new or worsening symptoms. Patient states that she fully agrees with and understands the discharge instructions. States that she agrees with the plan and disposition. Verbalized and repeated discharge instructions and plan. I have given the patient opportunity to ask any additional questions. Scribe Attestation: Documented by Rosa Henry, acting as a scribe for Desiree Colunga PA-C. Provider Scribe Attestation: All medical record entries made by the Scribe were at my direction and personally dictated by me. I have reviewed the chart and agree that the record accurately reflects my personal performance of the history, physical exam, medical decision making, and the department course for this patient. I have also personally directed, reviewed, and agree with the discharge instructions and disposition. Disposition - Clinical Impression Clinical Impression: demise before 20 weeks with retention of fetus - Patient ED Disposition Is Patient to be Admitted: No Counseled Patient/Family Regarding: Studies Performed, Diagnosis, Need For Followup - Disposition Referrals: Carlos Alberto MENENDEZ,Ken Springer [Non-Staff] - Disposition: Routine/Home Disposition Time: 14:35 Condition: STABLE Additional Instructions: FOLLOW UP WITH OBGYN WITHIN 48 HOURS FOR FURTHER EVALUATION/TREATMENT. The emergency medical care you received today was directed at your acute symptoms. If you were prescribed any medication, please fill it and take as directed. It may take several days for your symptoms to resolve. Return to the ED if your symptoms worsen, do not improve, or if you have any other problems. Please contact your doctor in 2 days for re-evaluation and follow up/or call one of the physicians/clinics you have been referred to that are listed on the Patient Visit Information form that is included in your discharge packet. Bring any paperwork you were given at discharge with you along with any medications you are taking to your follow up visit. Our treatment cannot replace ongoing medical care by a primary care provider (PCP) outside of the emergency dep artment. Instructions: Miscarriage, Dealing With Miscarriage Forms: [employer] (Qatari) Print Language: NIGERIEN - POA Present On Arrival: None Results - Lab Results Lab Results: 01/17/18 01/17/18 01/17/18 12:30 12:30 12:30 WBC 8.4 RBC 4.49 Hgb 12.6 Hct 38.3 MCV 85.3 MCH 28.0 MCHC 32.9 L RDW 13.1 Plt Count 292 MPV 7.5 Neut % (Auto) 63.4 Lymph % (Auto) 28.1 [place] % (Auto) 7.2 Eos % (Auto) 1.1 Baso % (Auto) 0.2 Neut # (Auto) 5.3 Lymph # (Auto) 2.4 [place] # (Auto) 0.6 Eos # (Auto) 0.1 Baso # (Auto) 0.0 Sodium 140 Potassium 4.2 Chloride 105 Carbon Dioxide 26 Anion Gap 13 BUN 11 Creatinine 0.5 L Est GFR ( Amer) > 60 Est GFR (Non-Af Amer) > 60 Random Glucose 84 Calcium 9.4 Total Bilirubin 0.3 AST 33 ALT 32 Alkaline Phosphatase 44 Total Protein 8.0 Albumin 4.5 Globulin 3.5 Albumin/Globulin Ratio 1.3 Beta HCG, Quant 75884.00
[2018-01-17 12:49] LABS: BASO % 0.2 % (0.0-2.0); EOS # 0.1 K/uL (0.0-0.7); EOS % 1.1 % (0.0-4.0); HEMOGLOBIN 12.6 g/dL (12.0-16.0); LYMPH # 2.4 K/uL (1.0-4.3); LYMPH % 28.1 % (20.0-40.0); MEAN CELL VOLUME 85.3 fl (81.0-99.0); MEAN CORPUSCULAR HGB CONC 32.9 g/dL (33.0-37.0); MEAN PLATELET VOLUME 7.5 fl (7.2-11.7); MONO # 0.6 K/uL (0.0-0.8); MONO % 7.2 % (0.0-10.0); NEUT # 5.3 K/uL (1.8-7.0); NEUT % 63.4 % (50.0-75.0); NRBC % 0.3 % (0.0-0.0); RBC 4.49 Mil/uL (3.80-5.20); RED CELL DISTRIBUTION WIDTH 13.1 % (11.5-14.5); WHITE BLOOD COUNT 8.4 K/uL (4.8-10.8)
[2018-01-17 12:58] LABS: ALB/GLOB RATIO 1.3 (1.0-2.1); ALBUMIN 4.5 g/dL (3.5-5.0); ALT/SGPT 32 U/L (9-52); AST/SGOT 33 U/L (14-36); BLOOD UREA NITROGEN 11 mg/dl (7-17); CALCIUM 9.4 mg/dL (8.4-10.2); GFR NON-AFRICAN AMERICAN > 60
--- NOTE | 2018-01-17 13:53 | US ---
Date of service: 01/17/2018 PROCEDURE: OB Pelvic Ultrasound HISTORY: no HR on U/S earlier today at imaging center COMPARISON: 12/01/2017. FINDINGS: UTERUS: Single intrauterine gestation. CRL equivalent measures 1.62 cm equivalent to 8 weeks and 0 day of gestational age. Gestational sac diameter measures 5.35 cm equivalent to 11 weeks and 2 days of gestational age age (Ultrasound estimated): 9 weeks and 5 days cardiac activity is not documented. Meme-gestational hemorrhage: None. Measures 11.5 x 9.2 x 7.1 cm. Normal in size and appearance. No fibroid or other mass lesion seen. CERVIX: Long and closed. In nabothian cyst is identified. RIGHT OVARY: Measures 3.5 x 3.5 x 2.0 cm. No mass. Normal flow. There is a 1.8 x 1.3 x 1.4 cm complicated cyst. LEFT OVARY: Measures 2.2 x 3.1 x 2.0 cm. No mass. Normal flow. FREE FLUID: None. OTHER FINDINGS: None. IMPRESSION: Single intrauterine gestation with mean gestational age of 9 weeks and 5 days. cardiac activity is not documented concerning for demise. Important findings were discussed with MARNI Colunga in the ER on 01/17/2018 at 1:45 p.m.
[2018-01-17 15:30] VITALS: BP 110/73; PULSE 72
== END 2018-01-17 14:50 | disposition home or self-care (01) ==
LOC: H.ER 11:23
DX: O36.4XX1 Maternal care for intrauterine death, fetus 1 (principal); Z3A.09 9 weeks gestation of pregnancy
CPT/HCPCS: 76817; 80053; 81025; 84702; 85025; 96360; 99284; J7030

== ENCOUNTER 2018-05-22 10:03 | Emergency (ER) | payer OTHER ==
[2018-05-22 10:11] VITALS: BMI 29.2
[2018-05-22 10:13] VITALS: RESP 18; O2SAT 99
--- NOTE | 2018-05-22 11:34 | ED PDOC ---
HPI: General Adult Time Seen by Provider: 05/22/18 11:32 Chief Complaint (Nursing): Back Pain Chief Complaint (Provider): lower back pain History Per: Patient (27 y/o female here for lower back pain intermittent x 5 days. Denies any dysuria/hematuria/fevers/chills. Has h/o kidney stones. H/o miscarriage Jan 2018. LMP 05/02.) Past Medical History Reviewed: Historical Data, Nursing Documentation, Vital Signs Vital Signs: Last Vital Signs Temp 98.7 F 05/22/18 10:11 Pulse 94 H 05/22/18 10:11 Resp 18 05/22/18 10:11 BP 110/70 05/22/18 10:11 Pulse Ox 99 05/22/18 10:11 - Family History Family History: States: Unknown Family Hx - Immunization History Hx Tetanus Toxoid Vaccination: No Hx Influenza Vaccination: Yes (01/2018) Hx Pneumococcal Vaccination: No - Home Medications Home Medications: Ambulatory Orders Medication Instructions Recorded Ciprofloxacin HCl [Cipro] 500 mg PO BID #20 tab 07/12/16 Dicyclomine [Bentyl] 20 mg PO BID PRN #30 tab 07/12/16 Ondansetron ODT [Zofran ODT] 1 odt PO Q6 PRN #30 odt 07/12/16 Saccharomyces Boulardi [Florastor] 500 mg PO BID #28 cap 07/12/16 metroNIDAZOLE [Flagyl] 500 mg PO TID #30 tab 07/12/16 Ibuprofen [Motrin] 600 mg PO TID 7 Days tab 04/15/17 Penicillin VK [Penicillin VK Tab] 500 mg PO Q6H 7 Days tab 04/15/17 Ibuprofen [Motrin Tab] 800 mg PO Q8 #20 tab 06/12/17 Ondansetron [Zofran] 4 mg PO Q8H #10 tab 06/12/17 cloNIDine [Catapres] 0.1 mg PO Q8 #10 tab 06/12/17 Tobramycin 0.3% [Tobramycin 5 Ml] 1 drop OP TID #1 bottle 08/03/17 Multivit/Folic Acid/I 1 tab PO DAILY #15 tab 05/22/18 [ Plus] - Allergies Allergies/Adverse Reactions: Allergies Allergy/AdvReac Type Severity Reaction Status Date / Time No Known Allergies Allergy Verified 05/22/18 10:31 Review of Systems ROS Statement: Except As Marked, All Systems Reviewed And Found Negative Musculoskeletal: Positive for: Back Pain Physical Exam - Reviewed Nursing Documentation Reviewed: Yes Vital Signs Reviewed: Yes - Physical Exam Appears: Positive for: Well, Non-toxic, No Acute Distress Head Exam: Positive for: ATRAUMATIC, NORMAL INSPECTION, NORMOCEPHALIC Skin: Positive for: Normal Color, Warm, DRY Eye Exam: Positive for: EOMI, Normal appearance, PERRL ENT: Positive for: Normal ENT Inspection Neck: Positive for: Normal, Painless ROM Cardiovascular/Chest: Positive for: Regular Rate, Rhythm Respiratory: Positive for: CNT, Normal Breath Sounds Gastrointestinal/Abdominal: Positive for: Normal Exam, Soft Back: Positive for: Vertebral Tenderness (mild paralumbar tenderness on exam). Negative for: Normal Inspection Extremity: Positive for: Normal ROM Neurological/Psych: Positive for: Awake, Alert, Normal Tone - Laboratory Results Result Diagrams: 05/22/18 11:40 05/22/18 11:40 Urine POC: Positive - ECG O2 Sat by Pulse Oximetry: 99 Disposition - Clinical Impression Clinical Impression: Threatened miscarriage in early , Ovarian cyst - Patient ED Disposition Is Patient to be Admitted: No - Disposition [facility] Disposition: Routine/Home Condition: FAIR Additional Instructions: RETURN IN 2 DAYS FOR REPEAT BETA HCG Prescriptions: Multivit/Folic Acid/I [ Plus] 1 tab PO DAILY #15 tab Instructions: Threatened Miscarriage (DC)
[2018-05-22 11:38] LABS: SQUAMOUS EPITHIAL 4 /hpf (0-5); URINE BILIRUBIN NEGATIVE (NEGATIVE); URINE BLOOD NEGATIVE (NEGATIVE); URINE CLARITY SLIGHTY-CLOUDY (Clear); URINE COLOR YELLOW (YELLOW); URINE GLUCOSE (UA) NEG (NEGATIVE); URINE LEUKOCYTE ESTERASE NEG Leu/uL (Negative); URINE PROTEIN NEGATIVE (NEGATIVE); URINE UROBILINOGEN 0.2-1.0 mg/dL (0.2-1.0)
[2018-05-22 11:46] LABS: BASO % 0.4 % (0.0-2.0); EOS # 0.1 K/uL (0.0-0.7); EOS % 1.6 % (0.0-4.0); HEMOGLOBIN 12.7 g/dL (12.0-16.0); LYMPH # 2.4 K/uL (1.0-4.3); LYMPH % 27.8 % (20.0-40.0); MEAN CORPUSCULAR HEMOGLOBIN 26.8 pg (27.0-31.0); MEAN CORPUSCULAR HGB CONC 32.7 g/dL (33.0-37.0); MEAN PLATELET VOLUME 7.8 fl (7.2-11.7); MONO # 0.9 K/uL (0.0-0.8); MONO % 10.1 % (0.0-10.0); NEUT # 5.2 K/uL (1.8-7.0); NEUT % 60.1 % (50.0-75.0); NRBC % 0.1 % (0.0-0.0); RBC 4.73 Mil/uL (3.80-5.20); RED CELL DISTRIBUTION WIDTH 14.6 % (11.5-14.5); WHITE BLOOD COUNT 8.6 K/uL (4.8-10.8)
[2018-05-22 12:13] LABS: BLOOD UREA NITROGEN 11 mg/dl (7-17); CALCIUM 9.9 mg/dL (8.4-10.2); GFR NON-AFRICAN AMERICAN > 60
--- NOTE | 2018-05-22 14:03 | US ---
Date of service: 05/22/2018 HISTORY: threatened miscarrige Beta HCG results 4972.50 units. COMPARISON: None available. TECHNIQUE: Standard protocol for this study/examination. FINDINGS: UTERUS: Measures 4.5 x 6.8 x 8.5 cm. Normal in size and appearance. No fibroid or other mass lesion seen. ENDOMETRIUM: Saclike structure, possible yolk sac. No visible pole. Gestational sac measurement 0.8 cm. Below the threshold for calculation of a reliable gestational age CERVIX: No cervical abnormality identified. Closed cervix measures 4.05 cm. RIGHT OVARY: Measures 1.5 x 2.6 x 2.9 cm. No solid mass. Normal flow. LEFT OVARY: Measures 3.2 x 1.7 x 3.6 cm. Solid mass with small cystic components. Increased vascularity identified. The possibility of concurrent ectopic gestation should be considered. Normal flow. Complex cyst 1.3 x 1.2 x 1.3 cm containing debris likely hemorrhagic cysts. FREE FLUID: Trace free fluid identified in the pelvis/cul de sac. OTHER FINDINGS: None. IMPRESSION: Early intrauterine gestation manifest as well-formed gestational sac and yolk sac. Findings in the left adnexa include simple cyst and complex cyst/mass. Although extremely unlikely, the possibility of concurrent ectopic gestation should be considered. Communication of results: I discussed findings directly with the physician speech pathologist assistant Norman Hui at the time of this interpretation 13:57.
[2018-05-22 14:31] VITALS: BP 116/66; PULSE 86; TEMP 98.8
== END 2018-05-22 13:55 | disposition home or self-care (01) ==
LOC: H.ER 10:03
DX: O20.0 Threatened abortion (principal); Z87.442 Personal history of urinary calculi; Z3A.01 Less than 8 weeks gestation of pregnancy; N83.209 Unspecified ovarian cyst, unspecified side

== ENCOUNTER 2018-05-24 09:25 | Emergency (ER) | payer OTHER ==
[2018-05-24 09:25] VITALS: BMI 29.2
[2018-05-24 09:29] VITALS: O2SAT 100
--- NOTE | 2018-05-24 09:36 | ED PDOC ---
HPI: Female Pain Time Seen by Provider: 05/24/18 09:31 Chief Complaint (Provider): Pelvic pain History Per: Patient History/Exam Limitations: no limitations Onset/Duration Of Symptoms: Days (05/22/18) Current Symptoms Are (Timing): Still Present Additional History Per: Patient Additional Complaint(s): Pt. has had pelvic cramping pain. No vaginal bleeding, weakness, dysuria, back pain, chest pain, dyspnea. No fever. Is preg and concerned as she still has the pain. Was here on 05/22/18 and had US and blood work done. Past Medical History Reviewed: Nursing Documentation, Vital Signs Vital Signs: Last Vital Signs Temp 97.8 F 05/24/18 09:27 Pulse 75 05/24/18 09:27 Resp 17 05/24/18 09:27 BP 99/57 L 05/24/18 09:27 Pulse Ox 100 05/24/18 09:27 - Medical History PMH: No Chronic Diseases - Surgical History Surgical History: No Surg Hx - Family History Family History: States: Unknown Family Hx - Immunization History Hx Tetanus Toxoid Vaccination: No Hx Influenza Vaccination: Yes (01/2018) Hx Pneumococcal Vaccination: No - Home Medications Home Medications: Ambulatory Orders Medication Instructions Recorded Ciprofloxacin HCl [Cipro] 500 mg PO BID #20 tab 07/12/16 Dicyclomine [Bentyl] 20 mg PO BID PRN #30 tab 07/12/16 Ondansetron ODT [Zofran ODT] 1 odt PO Q6 PRN #30 odt 07/12/16 Saccharomyces Boulardi [Florastor] 500 mg PO BID #28 cap 07/12/16 metroNIDAZOLE [Flagyl] 500 mg PO TID #30 tab 07/12/16 Ibuprofen [Motrin] 600 mg PO TID 7 Days tab 04/15/17 Penicillin VK [Penicillin VK Tab] 500 mg PO Q6H 7 Days tab 04/15/17 Ibuprofen [Motrin Tab] 800 mg PO Q8 #20 tab 06/12/17 Ondansetron [Zofran] 4 mg PO Q8H #10 tab 06/12/17 cloNIDine [Catapres] 0.1 mg PO Q8 #10 tab 06/12/17 Tobramycin 0.3% [Tobramycin 5 Ml] 1 drop OP TID #1 bottle 08/03/17 Multivit/Folic Acid/I 1 tab PO DAILY #15 tab 05/22/18 [ Plus] - Allergies Allergies/Adverse Reactions: Allergies Allergy/AdvReac Type Severity Reaction Status Date / Time No Known Allergies Allergy Verified 05/22/18 10:31 Review of Systems ROS Statement: Except As Marked, All Systems Reviewed And Found Negative Genitourinary Female: Positive for: Pelvic Pain Physical Exam - Reviewed Nursing Documentation Reviewed: Yes Vital Signs Reviewed: Yes - Physical Exam Appears: Positive for: Non-toxic, No Acute Distress Head Exam: Positive for: ATRAUMATIC, NORMAL INSPECTION, NORMOCEPHALIC Skin: Positive for: Normal Color, Warm, DRY Eye Exam: Positive for: EOMI, Normal appearance, PERRL ENT: Positive for: Normal ENT Inspection Neck: Positive for: Normal, Painless ROM Cardiovascular/Chest: Positive for: Regular Rate, Rhythm Respiratory: Positive for: CNT, Normal Breath Sounds Gastrointestinal/Abdominal: Positive for: Soft, Tenderness (across pelvic) Back: Positive for: Normal Inspection Extremity: Positive for: Normal ROM Neurological/Psych: Positive for: Awake, Alert, Normal Tone - Laboratory Results Result Diagrams: 05/24/18 08:55 05/24/18 08:55 Lab Results: bhcg increasing - ECG O2 Sat by Pulse Oximetry: 100 Pulse Ox Interpretation: Normal - CT Scan/US US Other Rad Studies (CT/US): Read By Radiologist Other Rad Interpretation: SLIUP - Progress ED Course And Treament: 945: Per records, pt. has US and showed IUP and cyst on the left with r/o for ectopic. Will repeat US and blood work. 1133: Stable. AAOx3. Pain free. Tolerated PO. Fu with pcp and obgyn. Disposition - Clinical Impression Clinical Impression: Threatened , Ovarian cyst - Patient ED Disposition Is Patient to be Admitted: No Counseled Patient/Family Regarding: Studies Performed, Diagnosis, Need For Followup - Disposition [facility]] Disposition: Routine/Home Disposition Time: 11:34 Condition: STABLE Additional Instructions: Return if not better in 3 days. Instructions: Ovarian Cysts, Threatened Miscarriage
[2018-05-24] MEDS ORDERED: Sodium Chloride 0.9% 1,000 ML IV STA (09:39)
[2018-05-24 10:28] LABS: ALB/GLOB RATIO 1.4 (1.0-2.1); ALBUMIN 4.6 g/dL (3.5-5.0); ALT/SGPT 30 U/L (9-52); AST/SGOT 26 U/L (14-36); BLOOD UREA NITROGEN 12 mg/dl (7-17); CALCIUM 10.1 mg/dL (8.4-10.2); GFR NON-AFRICAN AMERICAN > 60
[2018-05-24 10:31] LABS: BASO % 0.2 % (0.0-2.0); EOS # 0.2 K/uL (0.0-0.7); EOS % 2.7 % (0.0-4.0); LYMPH # 2.5 K/uL (1.0-4.3); LYMPH % 28.5 % (20.0-40.0); MEAN CELL VOLUME 81.7 fl (81.0-99.0); MEAN PLATELET VOLUME 8.2 fl (7.2-11.7); MONO # 0.8 K/uL (0.0-0.8); NEUT # 5.3 K/uL (1.8-7.0); NEUT % 59.6 % (50.0-75.0); NRBC % 0.1 % (0.0-0.0); RBC 4.83 Mil/uL (3.80-5.20); RED CELL DISTRIBUTION WIDTH 14.5 % (11.5-14.5); WHITE BLOOD COUNT 8.9 K/uL (4.8-10.8)
--- NOTE | 2018-05-24 11:28 | US ---
Date of service: 05/24/2018 PROCEDURE: OB Pelvic Ultrasound HISTORY: preg and pain; cyst r/o ectopic COMPARISON: None available. FINDINGS: UTERUS: Single Live intrauterine gestation. CRL measures 0.25 cm equivalent to 5 weeks and 6 days of gestational age. Gestational sac diameter measures 1.00 cm equivalent to 5 weeks and 0 days of gestational age. age (Ultrasound estimated): 5 weeks and 3 days Date of delivery (Ultrasound estimated) : 01/21/2019 Heart rate: 126 bpm. Meme-gestational hemorrhage: None. Uterus measures cm. No mass CERVIX: Long and closed. No cervical abnormality seen. RIGHT OVARY: Measures 2.6 x 2.5 x 1.8 cm. No mass. Normal flow. LEFT OVARY: Measures 3.7 x 3.7 x 2.4 cm. No mass. Normal flow. There are 2 complicated/hemorrhagic cysts measuring about 2.0 cm and a 1.3 x 1.2 x 1.2 cm simple cyst. FREE FLUID: None. OTHER FINDINGS: None. IMPRESSION: Single live intrauterine gestation with mean gestational age of 5 weeks and 3 days. The estimated date of delivery by ultrasound is 01/21/2019. The ultrasound dates correspond with the clinical dates.
[2018-05-24 13:23] VITALS: BP 107/63; PULSE 74; RESP 18; TEMP 98.3
== END 2018-05-24 13:34 | disposition home or self-care (01) ==
LOC: H.ER 09:25
DX: O20.0 Threatened abortion (principal); N83.209 Unspecified ovarian cyst, unspecified side; O34.81 Maternal care for other abnormalities of pelvic organs, first trimester; Z3A.01 Less than 8 weeks gestation of pregnancy
CPT/HCPCS: 76817; 80053; 84702; 85025; 86850; 86900; 99285; J2792; J7030

== ENCOUNTER 2018-06-10 19:42 | Emergency (ER) | payer OTHER ==
[2018-06-10 19:43] VITALS: BMI 29.2
[2018-06-10 20:03] VITALS: BP 106/68; PULSE 86; RESP 16; TEMP 98.8; O2SAT 99
--- NOTE | 2018-06-10 20:44 | ED PDOC ---
HPI: Female Pain Time Seen by Provider: 06/10/18 20:01 Chief Complaint (Nursing): Female Genitourinary History Per: Patient History/Exam Limitations: no limitations Onset/Duration Of Symptoms: Hrs Current Symptoms Are (Timing): Gone Now Additional Complaint(s): at approximately 8 weeks presenting with vaginal spotting approximatly 1 hour prior to arrival. It has since stopped. She states she has mild 2/10 cramping lower abdominal pain. Patient was concerned because she had a spontaneous in January 2018 and was told by her OB that if any concerning symptoms arise during this she should come to the E.R. Denies fevers, back pain, nausea, vomiting. Was in E.D. on 05/24 for similar and had Rhogam at that time. Past Medical History Reviewed: Historical Data, Nursing Documentation, Vital Signs Vital Signs: Last Vital Signs Temp 98.8 F 06/10/18 20:00 Pulse 86 06/10/18 20:00 Resp 16 06/10/18 20:00 BP 106/68 06/10/18 20:00 Pulse Ox 99 06/10/18 20:00 - Medical History PMH: No Chronic Diseases Denies: Chronic Kidney Disease - Family History Family History: States: Unknown Family Hx - Immunization History Hx Tetanus Toxoid Vaccination: No Hx Influenza Vaccination: Yes (01/2018) Hx Pneumococcal Vaccination: No - Home Medications Home Medications: Ambulatory Orders Medication Instructions Recorded Ciprofloxacin HCl [Cipro] 500 mg PO BID #20 tab 07/12/16 Dicyclomine [Bentyl] 20 mg PO BID PRN #30 tab 07/12/16 Ondansetron ODT [Zofran ODT] 1 odt PO Q6 PRN #30 odt 07/12/16 Saccharomyces Boulardi [Florastor] 500 mg PO BID #28 cap 07/12/16 metroNIDAZOLE [Flagyl] 500 mg PO TID #30 tab 07/12/16 Ibuprofen [Motrin] 600 mg PO TID 7 Days tab 04/15/17 Penicillin VK [Penicillin VK Tab] 500 mg PO Q6H 7 Days tab 04/15/17 Ibuprofen [Motrin Tab] 800 mg PO Q8 #20 tab 06/12/17 Ondansetron [Zofran] 4 mg PO Q8H #10 tab 06/12/17 cloNIDine [Catapres] 0.1 mg PO Q8 #10 tab 06/12/17 Tobramycin 0.3% [Tobramycin 5 Ml] 1 drop OP TID #1 bottle 08/03/17 Multivit/Folic Acid/I 1 tab PO DAILY #15 tab 05/22/18 [ Plus] - Allergies Allergies/Adverse Reactions: Allergies Allergy/AdvReac Type Severity Reaction Status Date / Time No Known Allergies Allergy Verified 05/22/18 10:31 Review of Systems ROS Statement: Except As Marked, All Systems Reviewed And Found Negative Gastrointestinal: Positive for: Abdominal Pain Genitourinary Female: Positive for: Vaginal Bleeding Physical Exam - Reviewed Nursing Documentation Reviewed: Yes Vital Signs Reviewed: Yes - Physical Exam Appears: Positive for: Well, Non-toxic, No Acute Distress Head Exam: Positive for: ATRAUMATIC, NORMAL INSPECTION, NORMOCEPHALIC Skin: Positive for: Normal Color, Warm, DRY Eye Exam: Positive for: EOMI, Normal appearance, PERRL ENT: Positive for: Normal ENT Inspection Neck: Positive for: Normal, Painless ROM Cardiovascular/Chest: Positive for: Regular Rate, Rhythm Respiratory: Positive for: CNT, Normal Breath Sounds Gastrointestinal/Abdominal: Positive for: Normal Exam, Soft. Negative for: Tenderness, Organomegaly, Mass, Distended, Guarding, Rebound Back: Positive for: Normal Inspection Extremity: Positive for: Normal ROM Neurological/Psych: Positive for: Awake, Alert, Normal Tone - ECG O2 Sat by Pulse Oximetry: 99 Pulse Ox Interpretation: Normal Medical Decision Making Medical Decision Makin27 year old F presenting with spotting, resolved --Vitals normal, very well appearing, reclining in stretcher, texting --Given history and patient's concern, will check U/S --Rhogam not needed at this time given recent administration on 05/24 1045PM CLINICAL HISTORY: The patient is G6, P1, at tight weeks with spotting, 4 abortions, 1 miscarriage. The last menstrual period was on 04/15/2018. EGA by LMP is 8 weeks 0 day. RUDOLPH by LMP is 01/20/2019. COMPARISON: Comparison is made with prior study dated 05/24/2018. TECHNIQUE: Realtime sonographic images were obtained in multiple projections. COMMENTS: A single intrauterine is identified with crown/rump length of 1.8 cm, which corresponds to the mean estimated gestational age of 8 weeks 2 days. heart motion is present, 152.83 beats per minute. Yolk sac is identified me asuring 0.31 cm. pole is identified. Gestational sac is seen with mean sac diameter of 2.47 cm, 7 weeks, 1 day. The uterus is anteverted measuring 9.66 x 7.19 x 5.34 cm. The cervical length me asures 3.22 cm. There is no evidence of free fluid within the pelvic cul-de-sac. The right ovary is not visualized. The left ovary measures 2.48 x 2.31 x 2.09 cm. The left ovary is free of masses. Blood flow is demonstrated within the left ovary. IMPRESSION: Single, live, intrauterine gestation, 8 weeks 2 days based on todays crown/rump length. Electronically signed on Jun 10, 2018 10:34:52 PM EDT by: Piotr Freitas M.D., ALEXA Certified By ABR & [facility] Fellowship Trained MRI and CT Specialist Patient reports no further bleeding. Advised her to followup with OB. Stable, well appearing. All results given. Disposition - Clinical Impression Clinical Impression: Threatened miscarriage in early - Patient ED Disposition Is Patient to be Admitted: No Counseled Patient/Family Regarding: Studies Performed, Diagnosis, Need For Followup - Disposition Referrals: [facility] [Outside] Disposition: Routine/Home Disposition Time: 22:52 Condition: IMPROVED Instructions: Threatened Miscarriage, Bleeding With (DC) Forms: [employer] (Turkmen)
--- NOTE | 2018-06-11 17:22 | US ---
Date of service: 06/10/2018 PROCEDURE: OB Pelvic Ultrasound HISTORY: @ 8 wks with spotting LMP: 04/15/2018 COMPARISON: Comparison made with prior pelvic ultrasound 05/24/2018 FINDINGS: UTERUS: Gestational sac: Single intrauterine gestation. MSD = 2.47 cm = 7 weeks 1 day Yolk sac: 3.1 mm. pole = CRL: 1.80 cm = 8 weeks 2 days Heart rate: 152 bpm. age (Ultrasound estimated): 7 weeks 5 days +/-0 weeks 4 days Meme-gestational hemorrhage: None. Date of delivery (Ultrasound estimated) : 01/22/2019 Uterus measures 9.8 x 7.2 x 5.3 cm. Normal in size and appearance. CERVIX: Measures 3.22 cm. Long and closed. No cervical abnormality seen. RIGHT OVARY: Not visualized LEFT OVARY: Measures 2.5 x 2.3 x 2.1 cm. No solid mass. Normal flow. FREE FLUID: None. OTHER FINDINGS: None. IMPRESSION: Single living intrauterine gestation with average ultrasound age estimated at approximately 7 weeks 5 days +/-0 weeks 4 days. Heart rate document at 1:52 BPM. Right ovary not visualized.
== END 2018-06-10 23:00 | disposition home or self-care (01) ==
LOC: H.ER 19:42
DX: O20.0 Threatened abortion (principal); Z3A.01 Less than 8 weeks gestation of pregnancy

== ENCOUNTER 2018-06-25 18:50 | Emergency (ER) | payer OTHER ==
[2018-06-25 18:50] VITALS: BMI 29.2
[2018-06-25 19:09] VITALS: RESP 18; O2SAT 99
--- NOTE | 2018-06-25 19:31 | ED PDOC ---
HPI: Abdomen Time Seen by Provider: 06/25/18 19:15 Chief Complaint (Nursing): Abdominal Pain Chief Complaint (Provider): Abdominal Pain History Per: Patient History/Exam Limitations: no limitations Additional Complaint(s): Patient is a 10 week 27 year old female with no significant PMH, who presents to the emergency department complaining of left middle abdominal pain that started yesterday. Patient states that the pain is mild, dull and constant with no associated nausea, vomiting or fevers. She further denies any urinary symptoms or vaginal bleeding. Patient was seen in ED for this before and has had and US done, which showed a single live IUP. OB history: , 1 spontaneous Ab, 3 elective Ab PMD: [place] Past Medical History Reviewed: Historical Data, Nursing Documentation, Vital Signs Vital Signs: Last Vital Signs Temp 98 F 06/25/18 19:07 Pulse 90 06/25/18 19:07 Resp 18 06/25/18 19:07 BP 111/70 06/25/18 19:07 Pulse Ox 99 06/25/18 19:07 - Medical History PMH: No Chronic Diseases Denies: Chronic Kidney Disease - Surgical History Surgical History: No Surg Hx - Family History Family History: States: Unknown Family Hx - Immunization History Hx Tetanus Toxoid Vaccination: No Hx Influenza Vaccination: Yes (01/2018) Hx Pneumococcal Vaccination: No - Home Medications Home Medications: Ambulatory Orders Medication Instructions Recorded Ciprofloxacin HCl [Cipro] 500 mg PO BID #20 tab 07/12/16 Dicyclomine [Bentyl] 20 mg PO BID PRN #30 tab 07/12/16 Ondansetron ODT [Zofran ODT] 1 odt PO Q6 PRN #30 odt 07/12/16 Saccharomyces Boulardi [Florastor] 500 mg PO BID #28 cap 07/12/16 metroNIDAZOLE [Flagyl] 500 mg PO TID #30 tab 07/12/16 Ibuprofen [Motrin] 600 mg PO TID 7 Days tab 04/15/17 Penicillin VK [Penicillin VK Tab] 500 mg PO Q6H 7 Days tab 04/15/17 Ibuprofen [Motrin Tab] 800 mg PO Q8 #20 tab 06/12/17 Ondansetron [Zofran] 4 mg PO Q8H #10 tab 06/12/17 cloNIDine [Catapres] 0.1 mg PO Q8 #10 tab 06/12/17 Tobramycin 0.3% [Tobramycin 5 Ml] 1 drop OP TID #1 bottle 08/03/17 Multivit/Folic Acid/I 1 tab PO DAILY #15 tab 05/22/18 [ Plus] - Allergies Allergies/Adverse Reactions: Allergies Allergy/AdvReac Type Severity Reaction Status Date / Time No Known Allergies Allergy Verified 05/22/18 10:31 Review of Systems ROS Statement: Except As Marked, All Systems Reviewed And Found Negative Constitutional: Negative for: Fever Gastrointestinal: Positive for: Abdominal Pain. Negative for: Nausea, Vomiting Genitourinary Female: Negative for: Dysuria, Frequency, Incontinence, Hematuria, Vaginal Bleeding Physical Exam - Reviewed Nursing Documentation Reviewed: Yes Vital Signs Reviewed: Yes - Physical Exam Appears: Positive for: Non-toxic, No Acute Distress Head Exam: Positive for: ATRAUMATIC Skin: Positive for: Normal Color, Warm, Dry Cardiovascular/Chest: Positive for: Regular Rate, Rhythm. Negative for: Murmur Respiratory: Positive for: Normal Breath Sounds. Negative for: Respiratory Distress Gastrointestinal/Abdominal: Positive for: Tenderness (mild left middle abdominal tenderness ) - ECG O2 Sat by Pulse Oximetry: 99 (RA) Pulse Ox Interpretation: Normal Medical Decision Making Medical Decision Making: Time: 1924 Plan: --ED urine --CMP --CBC with differential --Tylenol 650 mg PO --Urinalysis US from 06/10 CLINICAL HISTORY: The patient is G6, P1, at tight weeks with spotting, 4 abortions, 1 miscarriage. The last menstrual period was on 04/15/2018. EGA by LMP is 8 weeks 0 day. RUDOLPH by LMP is 01/20/2019. COMPARISON: Comparison is made with prior study dated 05/24/2018. TECHNIQUE: Realtime sonographic images were obtained in multiple projections. COMMENTS: A single intrauterine is identified with crown/rump length of 1.8 cm, which corresponds to the mean estimated gestational age of 8 weeks 2 days. heart motion is present, 152.83 beats per minute. Yolk sac is identified measuring 0.31 cm. pole is identified. Gestational sac is seen with mean sac diameter of 2.47 cm, 7 weeks, 1 day. The uterus is anteverted measuring 9.66 x 7.19 x 5.34 cm. The cervical length measures 3.22 cm. There is no evidence of free fluid within the pelvic cul-de-sac. The right ovary is not visualized. The left ovary measures 2.48 x 2.31 x 2.09 cm. The left ovary is free of masses. Blood flow is demonstrated within the left ovary. IMPRESSION: Single, live, intrauterine gestation, 8 weeks 2 days based on todays crown/rump length. Time: 1934 --Patient has had an US on 05/22, 05/24, --Most recent US showed single live IUP with a heart rate of 152, otherwise was a normal US. Time: 1999 --Patient care endorsed over to Ion Morrell PA-C. Scribe Attestation: Documented by Edmar López, acting as a scribe Ga Roy PA-C. Provider Scribe Attestation: All medical record entries made by the Scribe were at my direction and personally dictated by me. I have reviewed the chart and agree that the record accurately reflects my personal performance of the history, physical exam, medical decision making, and the department course for this patient. I have also personally directed, reviewed, and agree with the discharge instructions and disposition Disposition - Clinical Impression Clinical Impression: Abdominal pain during - Patient ED Disposition Is Patient to be Admitted: Transfer of Care (MAX Morrell, pending labs, reassessment) - Disposition Disposition Time: 19:52 Condition: STABLE Forms: [employer] (Sinhala)
[2018-06-25 20:07] LABS: BASO # 0.1 K/uL (0.0-0.2); BASO % 0.5 % (0.0-2.0); EOS # 0.2 K/uL (0.0-0.7); EOS % 1.6 % (0.0-4.0); LYMPH # 2.7 K/uL (1.0-4.3); MEAN CORPUSCULAR HEMOGLOBIN 27.2 pg (27.0-31.0); MEAN CORPUSCULAR HGB CONC 33.2 g/dL (33.0-37.0); MEAN PLATELET VOLUME 7.6 fl (7.2-11.7); MONO % 9.3 % (0.0-10.0); NEUT # 7.2 K/uL (1.8-7.0); NEUT % 64.6 % (50.0-75.0); NRBC % 0.1 % (0.0-0.0); RBC 4.41 Mil/uL (3.80-5.20); RED CELL DISTRIBUTION WIDTH 14.2 % (11.5-14.5); WHITE BLOOD COUNT 11.2 K/uL (4.8-10.8)
[2018-06-25 20:15] LABS: SQUAMOUS EPITHIAL 16 /hpf (0-5); URINE BACTERIA RARE (<OCC); URINE BILIRUBIN NEGATIVE (NEGATIVE); URINE BLOOD NEGATIVE (NEGATIVE); URINE CLARITY CLOUDY (Clear); URINE COLOR YELLOW (YELLOW); URINE GLUCOSE (UA) NEG (NEGATIVE); URINE LEUKOCYTE ESTERASE NEG Leu/uL (Negative); URINE PROTEIN NEGATIVE (NEGATIVE); URINE UROBILINOGEN 0.2-1.0 mg/dL (0.2-1.0)
[2018-06-25 20:16] LABS: ALB/GLOB RATIO 1.3 (1.0-2.1); ALBUMIN 4.4 g/dL (3.5-5.0); ALT/SGPT 32 U/L (9-52); AST/SGOT 28 U/L (14-36); BLOOD UREA NITROGEN 12 mg/dl (7-17); CALCIUM 9.8 mg/dL (8.4-10.2); GFR NON-AFRICAN AMERICAN > 60
--- NOTE | 2018-06-25 21:18 | ED PDOC ---
- Laboratory Results Result Diagrams: 06/25/18 19:58 06/25/18 19:58 Lab Results: Total Bilirubin 0.2 mg/dl (0.2-1.3) 06/25/18 19:58 AST 28 U/L (14-36) 06/25/18 19:58 ALT 32 U/L (9-52) 06/25/18 19:58 Alkaline Phosphatase 49 U/L (38-126) 06/25/18 19:58 Total Protein 7.7 G/DL (6.3-8.2) 06/25/18 19:58 Albumin 4.4 g/dL (3.5-5.0) 06/25/18 19:58 Globulin 3.3 gm/dL (2.2-3.9) 06/25/18 19:58 Albumin/Globulin Ratio 1.3 (1.0-2.1) 06/25/18 19:58 Urine Color Yellow (YELLOW) 06/25/18 19:58 Urine Clarity Cloudy (Clear) 06/25/18 19:58 Urine pH 6.0 (5.0-8.0) 06/25/18 19:58 Ur Specific Brillion 1.030 (1.003-1.030) 06/25/18 19:58 Urine Protein Negative mg/dL (NEGATIVE) 06/25/18 19:58 Urine Glucose (UA) Neg mg/dL (NEGATIVE) 06/25/18 19:58 Urine Ketones Negative mg/dL (NEGATIVE) 06/25/18 19:58 Urine Blood Negative (NEGATIVE) 06/25/18 19:58 Urine Nitrate Negative (NEGATIVE) 06/25/18 19:58 Urine Bilirubin Negative (NEGATIVE) 06/25/18 19:58 Urine Urobilinogen 0.2-1.0 mg/dL (0.2-1.0) 06/25/18 19:58 Ur Leukocyte Esterase Neg Peace/uL (Negative) 06/25/18 19:58 Urine RBC (Auto) 2 /hpf (0-3) 06/25/18 19:58 Urine Microscopic WBC 1 /hpf (0-5) 06/25/18 19:58 Ur Squamous Epith Cells 16 /hpf (0-5) H 06/25/18 19:58 Urine Bacteria Rare (<OCC) 06/25/18 19:58 - ECG O2 Sat by Pulse Oximetry: 99 (RA) Medical Decision Making Medical Decision Makin pt endorsed to me by SHIRAZ Roy, pending lab results and re eval 2114 pt seen by me, reports pain is in LLQ, different then she has had before and has not gotten better, abdomen is soft and diffusely tender in lower abdomen, mild guarding in suprapubic area, WBC 11.2, slightly elevate compared to previous, pt reports miscarriage in Jan 2018 without bleeding and is concerned for miscarriage again since the pain is similar, will send for OB US 0134 Obstetric ultrasound, first trimester. Indication: Left-sided pelvic discomfort. Technique: Real-time ultrasound images were obtained. Findings: The uterus measures 10.1x7.4x8.8 cm. Normal cervical length measuring 4.1 cm. Early intrauterine . The crown-rump length measures 3.7 cm which corresponds to an estimated gestational age of 10 weeks and one day. No free fluid is noted in the pelvic cul-de-sac. Complex cyst of the left ovary measuring 1.8 cm. heart rate 161 beats per minute. Impression: Early intrauterine is seen. No acute abnormality. Electronically signed on Jun 26, 2018 1:31:40 AM EDT by: Deana Richards M.D., Certified by ABR, MSK, Neuroradiology on re eval pt is feeling better, abdomen is soft and non tender discussed results, diagnosis, treatment, return precautions and f/u with pt who is understanding, in agreement and stable for dc Disposition Counseled Patient/Family Regarding: Studies Performed, Diagnosis, Need For Followup - Clinical Impression Clinical Impression: Abdominal pain during , Left ovarian cyst - POA Present On Arrival: None - Disposition Referrals: Ken Carcamo MD [Non-Staff] - Disposition: Routine/Home Disposition Time: 01:35 Condition: STABLE Additional Instructions: The emergency medical care you received today was directed at your acute symptoms. If you were prescribed any medication, please fill it and take as d irected. It may take several days for your symptoms to resolve. Return to the Emergency Department if your symptoms worsen, do not improve, or if you have any other problems. Please contact your doctor in 2 days for re-evaluation and follow up / or call one of the physicians/clinics you have been referred to that are listed on the Patient Visit Information form that is included in your discharge packet. Bring any paperwork you were given at discharge with you along with any medications you are taking to your follow up visit. Our treatment cannot replace ongoing medical care by a primary care provider (PCP) outside of the emergency department. Instructions: Ovarian Cysts, Stomach Pain in Early Forms: [employer] (Belarusian) Print Language: HUNGARIAN
[2018-06-26 04:29] VITALS: BP 119/74; PULSE 81; TEMP 98.2
--- NOTE | 2018-06-26 13:30 | US ---
Date of service: 06/26/2018 PROCEDURE: OB Pelvic Ultrasound HISTORY: Pain LMP: 04/15/2018 COMPARISON: Comparison made with prior pelvic ultrasound 06/10/2018 FINDINGS: UTERUS: Gestational sac: MSD = single intrauterine gestation. Yolk sac: Not visualized pole: CRL = 3.6 cm = 8 weeks 5 days Heart rate: 161 bpm. age (Ultrasound estimated): 9 weeks 5 days +/-0 weeks 5 days Meme-gestational hemorrhage: None. Date of delivery (Ultrasound estimated) : 01/24/2019 Uterus measures 11.0 x 7.4 x 8.8 cm. Normal in size and appearance. CERVIX: Measures 4.9 cm. Long and closed. No cervical abnormality seen. RIGHT OVARY: Measures 3.9 x 2.8 x 3.1 cm. No mass lesion. Normal flow. LEFT OVARY: Measures 4.0 x 2.8 x 2.1 cm. No solid mass. Normal flow. Small complex cyst measuring 1.5 x 1.3 x 1.8 cm FREE FLUID: None. OTHER FINDINGS: None. IMPRESSION: Single living intrauterine gestation with estimated age 9 weeks 5 days +/-0 weeks 5 days. Heart rate documented at 161 BPM.
== END 2018-06-26 02:10 | disposition home or self-care (01) ==
LOC: H.ER 18:50
DX: O26.899 Other specified pregnancy related conditions, unspecified trimester (principal); N83.202 Unspecified ovarian cyst, left side; O34.81 Maternal care for other abnormalities of pelvic organs, first trimester; Z3A.09 9 weeks gestation of pregnancy

== ENCOUNTER 2018-06-29 09:54 | Emergency (ER) | payer OTHER ==
[2018-06-29 09:59] VITALS: RESP 18
[2018-06-29 10:00] VITALS: BMI 30.5
--- NOTE | 2018-06-29 10:36 | ED PDOC ---
HPI: Female Pain Time Seen by Provider: 06/29/18 10:17 Chief Complaint (Nursing): Female Genitourinary Chief Complaint (Provider): Spotting History Per: Patient History/Exam Limitations: no limitations Onset/Duration Of Symptoms: Days (2 days) Additional Complaint(s): Pt. with spotting for 2 days. No pelvic pain. No dysuria, weakness, chest pain, back pain. Is 10 weeks preg. Here few days ago and with cramping. US was with sliup then. Past Medical History Reviewed: Nursing Documentation, Vital Signs Vital Signs: Last Vital Signs Temp 98.5 F 06/29/18 09:59 Pulse 79 06/29/18 09:59 Resp 18 06/29/18 09:59 BP 107/58 L 06/29/18 09:59 Pulse Ox 97 06/29/18 09:59 - Medical History PMH: Denies: Chronic Kidney Disease Other PMH: misscarriage - Surgical History Surgical History: No Surg Hx - Family History Family History: States: Unknown Family Hx - Immunization History Hx Tetanus Toxoid Vaccination: No Hx Influenza Vaccination: Yes (01/2018) Hx Pneumococcal Vaccination: No - Home Medications Home Medications: Ambulatory Orders Medication Instructions Recorded Ciprofloxacin HCl [Cipro] 500 mg PO BID #20 tab 07/12/16 Dicyclomine [Bentyl] 20 mg PO BID PRN #30 tab 07/12/16 Ondansetron ODT [Zofran ODT] 1 odt PO Q6 PRN #30 odt 07/12/16 Saccharomyces Boulardi [Florastor] 500 mg PO BID #28 cap 07/12/16 metroNIDAZOLE [Flagyl] 500 mg PO TID #30 tab 07/12/16 Ibuprofen [Motrin] 600 mg PO TID 7 Days tab 04/15/17 Penicillin VK [Penicillin VK Tab] 500 mg PO Q6H 7 Days tab 04/15/17 Ibuprofen [Motrin Tab] 800 mg PO Q8 #20 tab 06/12/17 Ondansetron [Zofran] 4 mg PO Q8H #10 tab 06/12/17 cloNIDine [Catapres] 0.1 mg PO Q8 #10 tab 06/12/17 Tobramycin 0.3% [Tobramycin 5 Ml] 1 drop OP TID #1 bottle 08/03/17 Multivit/Folic Acid/I 1 tab PO DAILY #15 tab 05/22/18 [ Plus] - Allergies Allergies/Adverse Reactions: Allergies Allergy/AdvReac Type Severity Reaction Status Date / Time No Known Allergies Allergy Verified 06/29/18 10:09 Review of Systems ROS Statement: Except As Marked, All Systems Reviewed And Found Negative Genitourinary Female: Positive for: Vaginal Bleeding Physical Exam - Reviewed Nursing Documentation Reviewed: Yes Vital Signs Reviewed: Yes - Physical Exam Appears: Positive for: Non-toxic, No Acute Distress Head Exam: Positive for: ATRAUMATIC, NORMAL INSPECTION, NORMOCEPHALIC Skin: Positive for: Normal Color, Warm, DRY Eye Exam: Positive for: EOMI, Normal appearance, PERRL ENT: Positive for: Normal ENT Inspection Neck: Positive for: Normal, Painless ROM Cardiovascular/Chest: Positive for: Regular Rate, Rhythm Respiratory: Positive for: CNT, Normal Breath Sounds Gastrointestinal/Abdominal: Positive for: Soft. Negative for: Tenderness, Guarding Back: Positive for: Normal Inspection. Negative for: L CVA Tenderness, R CVA Tenderness Extremity: Positive for: Normal ROM. Negative for: Tenderness, Pedal Edema Neurological/Psych: Positive for: Awake, Alert, Normal Tone - Laboratory Results Result Diagrams: 06/29/18 11:05 06/29/18 11:05 Interpretation Of Abn Labs: elevated bhcg - ECG O2 Sat by Pulse Oximetry: 97 Pulse Ox Interpretation: Normal - Progress ED Course And Treament: 1328: Pt. rh neg, but got rhogam recently. AAOx3. Pain free. To fu with obgyn. Disposition - Clinical Impression Clinical Impression: Abdominal pain during - Patient ED Disposition Is Patient to be Admitted: No Counseled Patient/Family Regarding: Studies Performed, Diagnosis, Need For Fol lowup - Disposition Referrals: [facility] [Outside] - 06/30/18 Disposition: Routine/Home Disposition Time: 13:29 Condition: STABLE Additional Instructions: Return if not better in 3 days. Instructions: Threatened Miscarriage Forms: [facility] ED School/Work Excuse
[2018-06-29 11:20] LABS: BASO % 0.3 % (0.0-2.0); EOS # 0.1 K/uL (0.0-0.7); EOS % 1.2 % (0.0-4.0); HEMOGLOBIN 11.7 g/dL (12.0-16.0); LYMPH # 2.1 K/uL (1.0-4.3); LYMPH % 25.6 % (20.0-40.0); MEAN CELL VOLUME 82.1 fl (81.0-99.0); MEAN CORPUSCULAR HEMOGLOBIN 27.9 pg (27.0-31.0); MEAN CORPUSCULAR HGB CONC 33.9 g/dL (33.0-37.0); MEAN PLATELET VOLUME 7.6 fl (7.2-11.7); MONO # 0.7 K/uL (0.0-0.8); MONO % 8.6 % (0.0-10.0); NEUT # 5.4 K/uL (1.8-7.0); NEUT % 64.3 % (50.0-75.0); NRBC % 0.1 % (0.0-0.0); RBC 4.2 Mil/uL (3.80-5.20); WHITE BLOOD COUNT 8.3 K/uL (4.8-10.8)
[2018-06-29 11:32] LABS: BLOOD UREA NITROGEN 9 mg/dl (7-17); CALCIUM 9.5 mg/dL (8.4-10.2); GFR NON-AFRICAN AMERICAN > 60
--- NOTE | 2018-06-29 12:50 | US ---
Date of service: 06/29/2018 PROCEDURE: OB Pelvic Ultrasound HISTORY: preg and pain COMPARISON: None available. FINDINGS: UTERUS: Single Live intrauterine gestation. Yolk sac is visualized. CRL measures 4.6 cm equivalent to 11 weeks and 3 days of gestational age. Gestational sac diameter measures 4.7 cm equivalent to 10 weeks and 2 days of gestational age. age (Ultrasound estimated): 11 weeks and 0 day Date of delivery (Ultrasound estimated) : 01/18/2019 Heart rate: 158 bpm. Meme-gestational hemorrhage: None. Uterus measures 11.2 x 8.5 x 0.4 cm. No mass CERVIX: Long and closed. There is a nabothian cyst in the cervix. RIGHT OVARY: Measures 2.7 x 2.6 x 1.5 cm. No mass. Normal flow. LEFT OVARY: Measures 3.2 x 3.0 x 2.2 cm. No mass. Normal flow. FREE FLUID: None. OTHER FINDINGS: None. IMPRESSION: Single live intrauterine gestation with mean gestational age of 11 weeks and 0 day. The estimated date of delivery by ultrasound is 01/18/2019. The ultrasound dates correspond with the clinical dates.
[2018-06-29 13:49] VITALS: BP 102/65; PULSE 76; TEMP 98; O2SAT 99
== END 2018-06-29 15:04 | disposition home or self-care (01) ==
LOC: H.ER 09:54
DX: O26.899 Other specified pregnancy related conditions, unspecified trimester (principal); Z3A.11 11 weeks gestation of pregnancy

== ENCOUNTER 2018-07-22 21:47 | Emergency (ER) | payer OTHER ==
[2018-07-22 21:47] VITALS: BMI 30.5
[2018-07-22 21:57] VITALS: RESP 16
--- NOTE | 2018-07-22 22:18 | ED PDOC ---
HPI: General Adult Time Seen by Provider: 07/22/18 22:16 Chief Complaint (Nursing): Female Genitourinary Chief Complaint (Provider): abd pain History Per: Patient (27 y/o female approx 14 week gestation here with lower abd pain intermittent today. Patient concerned for miscarriage. No vaginal bleeding. Patient is to start antibiotics for UTI this week but unsure of name. States first 3 letters NIT.) Past Medical History Reviewed: Historical Data, Nursing Documentation, Vital Signs Vital Signs: Last Vital Signs Temp 98.2 F 07/22/18 21:57 Pulse 90 07/22/18 21:57 Resp 16 07/22/18 21:57 BP 97/64 L 07/22/18 21:57 Pulse Ox 98 07/22/18 21:57 Primary Care Provider: FAMILY PROVIDER,NO - Medical History PMH: Denies: Chronic Kidney Disease - Family History Family History: States: Unknown Family Hx - Immunization History Hx Tetanus Toxoid Vaccination: No Hx Influenza Vaccination: Yes (01/2018) Hx Pneumococcal Vaccination: No - Home Medications Home Medications: Ambulatory Orders Medication Instructions Recorded Ciprofloxacin HCl [Cipro] 500 mg PO BID #20 tab 07/12/16 Dicyclomine [Bentyl] 20 mg PO BID PRN #30 tab 07/12/16 Ondansetron ODT [Zofran ODT] 1 odt PO Q6 PRN #30 odt 07/12/16 Saccharomyces Boulardi [Florastor] 500 mg PO BID #28 cap 07/12/16 metroNIDAZOLE [Flagyl] 500 mg PO TID #30 tab 07/12/16 Ibuprofen [Motrin] 600 mg PO TID 7 Days tab 04/15/17 Penicillin VK [Penicillin VK Tab] 500 mg PO Q6H 7 Days tab 04/15/17 Ibuprofen [Motrin Tab] 800 mg PO Q8 #20 tab 06/12/17 Ondansetron [Zofran] 4 mg PO Q8H #10 tab 06/12/17 cloNIDine [Catapres] 0.1 mg PO Q8 #10 tab 06/12/17 Tobramycin 0.3% [Tobramycin 5 Ml] 1 drop OP TID #1 bottle 08/03/17 Multivit/Folic Acid/I 1 tab PO DAILY #15 tab 05/22/18 [ Plus] - Allergies Allergies/Adverse Reactions: Allergies Allergy/AdvReac Type Severity Reaction Status Date / Time No Known Allergies Allergy Verified 06/29/18 10:09 Review of Systems ROS Statement: Except As Marked, All Systems Reviewed And Found Negative Physical Exam - Reviewed Nursing Documentation Reviewed: Yes Vital Signs Reviewed: Yes - Physical Exam Appears: Positive for: Well, Non-toxic, No Acute Distress Head Exam: Positive for: ATRAUMATIC, NORMAL INSPECTION, NORMOCEPHALIC Skin: Positive for: Normal Color, Warm, DRY Eye Exam: Positive for: EOMI, Normal appearance, PERRL ENT: Positive for: Normal ENT Inspection Neck: Positive for: Normal, Painless ROM Cardiovascular/Chest: Positive for: Regular Rate, Rhythm Respiratory: Positive for: CNT, Normal Breath Sounds Gastrointestinal/Abdominal: Positive for: Normal Exam, Soft Pelvic Exam: Positive for: External Exam Normal, Speculum Exam Normal, Bimanual Exam Normal, No Cerv. Motion Tender. Negative for: Active Bleeding, Tender Adnexa Back: Positive for: Normal Inspection Extremity: Positive for: Normal ROM Neurological/Psych: Positive for: Awake, Alert, Normal Tone - Laboratory Results Result Diagrams: 07/22/18 22:30 07/22/18 22:30 - ECG O2 Sat by Pulse Oximetry: 98 - Progress ED Course And Treament: KDUR 20 MEQ X 1 DOSE Medical Decision Making Medical Decision Making: EXAM: US Obstetrical, Complete <14 weeks CLINICAL HISTORY: Pain TECHNIQUE: Transvaginal and transabdominal imaging of the maternal pelvis and a <14 week gestation with image documentation. COMPARISON: SD\US - OB TRANSVAGINAL - 06/29/2018 11:36 AM EDT FINDINGS: UTERUS: Unremarkable. No myometrial mass. CERVIX: Cervix measures 4.7 cm and appears closed. OVARIES: Unremarkable. No mass. FREE FLUID: No free fluid. MISCELLANEOUS: Placenta is posterior and fundal. No previa. presentation is transverse of the time of scanning. motion is observed. heart motion observed at 142 beats per minute. Mean ultrasound age based on BPD, abdominal circumference, head circumference and femur length averages 14 weeks and 5 days. No acute abnormalities are seen. BPD measures 2.8 cm compatible with 15.1 weeks. Abdominal circumference measures 8.4 cm compatible with 14.5 weeks. Head circumference measures 9.5 cm compatible with 14.3 weeks. Femur length measures 1.5 cm compatible 14.4 weeks. IMPRESSION: 1. Single live intrauterine gestation of approximately 14.5 weeks. 2. Placenta is posterior and fundal. No previa. 3. presentation is transverse at the time of scanning. 4. motion is observed. 5. heart motion observed at 142 beats per minute. 6. Mean ultrasound age based on BPD, abdominal circumference, head circumference and femur length averages 14 weeks and 5 days. 7. No acute abnormalities are seen. Electronically signed on July 23, 2018 12:58:43 AM EDT by: Piotr Freitas M.D., M.B.A., Certified By [facility] Disposition - Clinical Impression Clinical Impression: Threatened miscarriage - Patient ED Disposition Is Patient to be Admitted: No - Disposition Disposition: Routine/Home Disposition Time: 01:11 Condition: FAIR Instructions: Threatened Miscarriage
[2018-07-22 22:42] LABS: BASO % 0.2 % (0.0-2.0); EOS # 0.1 K/uL (0.0-0.7); EOS % 1.4 % (0.0-4.0); HEMOGLOBIN 10.8 g/dL (12.0-16.0); LYMPH # 2.7 K/uL (1.0-4.3); LYMPH % 26.8 % (20.0-40.0); MEAN CELL VOLUME 81.8 fl (81.0-99.0); MEAN CORPUSCULAR HEMOGLOBIN 28.1 pg (27.0-31.0); MEAN CORPUSCULAR HGB CONC 34.4 g/dL (33.0-37.0); MEAN PLATELET VOLUME 7.6 fl (7.2-11.7); MONO # 0.9 K/uL (0.0-0.8); MONO % 8.8 % (0.0-10.0); NEUT # 6.3 K/uL (1.8-7.0); NEUT % 62.8 % (50.0-75.0); RBC 3.82 Mil/uL (3.80-5.20); RED CELL DISTRIBUTION WIDTH 13.7 % (11.5-14.5); WHITE BLOOD COUNT 10.1 K/uL (4.8-10.8)
[2018-07-22 22:46] LABS: SQUAMOUS EPITHIAL 10 /hpf (0-5); URINE BACTERIA RARE (<OCC); URINE BILIRUBIN NEGATIVE (NEGATIVE); URINE BLOOD NEGATIVE (NEGATIVE); URINE CLARITY CLOUDY (Clear); URINE COLOR YELLOW (YELLOW); URINE GLUCOSE (UA) NEG (NEGATIVE); URINE LEUKOCYTE ESTERASE NEG Leu/uL (Negative); URINE PROTEIN 30 mg/dL (NEGATIVE); URINE UROBILINOGEN 0.2-1.0 mg/dL (0.2-1.0)
[2018-07-22 23:05] LABS: ALB/GLOB RATIO 1.3 (1.0-2.1); ALBUMIN 3.7 g/dL (3.5-5.0); ALT/SGPT 24 U/L (9-52); AST/SGOT 19 U/L (14-36); BLOOD UREA NITROGEN 10 mg/dl (7-17); CALCIUM 8.9 mg/dL (8.4-10.2); GFR NON-AFRICAN AMERICAN > 60
[2018-07-23] MEDS ORDERED: Potassium Chloride 20 mEq ER Tab PO ONE ×2 (01:10→01:19)
[2018-07-23 01:53] VITALS: BP 116/62; PULSE 79; TEMP 98.7; O2SAT 100
--- NOTE | 2018-07-23 16:52 | US ---
Date of service: 07/23/2018 PROCEDURE: OB Pelvic Ultrasound HISTORY: threatened miscarriage LMP: 04/25/2018 COMPARISON: Ob ultrasound 06/29/2018. FINDINGS: UTERUS: Gestational sac: Single intrauterine gestation. Heart rate: 141 bpm. age (Ultrasound estimated): 14 weeks 5 days approximately, concordant with growth compared to 06/29/2018 gestational age estimate of 11 weeks 0 days previously. Meme-gestational hemorrhage: None. Date of delivery (Ultrasound estimated) : 01/16/2019. The following mean biometry was obtained: Biparietal diameter 2.8 cm corresponds to 15 weeks 1 day. Head circumference 9.5 cm corresponds to 15 14 weeks 3 days. Abdominal circumference 8.4 cm correspond to 14 weeks 5 days. Femur length 1.5 cm correspond to 14 weeks 4 days. Posterior fundal placenta identified with partial previa suggested. CERVIX: Measures 4.5 cm. Long and closed. No cervical abnormality seen. RIGHT OVARY: Not identified. No suspicious adnexal mass or fluid collection appreciable. LEFT OVARY: Not identified. No suspicious adnexal mass or fluid collection appreciable. FREE FLUID: None. OTHER FINDINGS: None. IMPRESSION: Single viable intrauterine gestation is identified with average ultrasonic age of 14 weeks 5 days representing normal interval growth compared prior transvaginal obstetric ultrasound 06/29/2018. cardiac activity 141 beats per minute. Partial placenta previa suggested. Clinical follow-up advised.
== END 2018-07-23 01:30 | disposition home or self-care (01) ==
LOC: H.ER 21:47
DX: O20.0 Threatened abortion (principal); O23.42 Unspecified infection of urinary tract in pregnancy, second trimester; Z3A.14 14 weeks gestation of pregnancy